=== PATIENT | male | born 1960 | race Caucasian/White ===

== ENCOUNTER 2016-04-13 14:39 | Inpatient (IN) | payer OTHER, MEDICAID ==
--- NOTE | 2016-04-13 14:58 | CPEKG ---
Heart Rate: 89 RR Interval: 674 P-R Interval: 140 QRSD Interval: 146 QT Interval: 388 QTC Interval: 473 P [place]: 0 QRS [place]: 96 T Wave [place]: -28 EKG Severity - ABNORMAL ECG - EKG Impression: SINUS RHYTHM EKG Impression: NONSPECIFIC INTRAVENTRICULAR CONDUCTION DELAY EKG Impression: LATERAL INFARCT, OLD EKG Impression: ANTERIOR INFARCT, AGE INDETERMINATE Electronically Signed By: Yarely Marcano 13-Apr-2016 22:03:24
--- NOTE | 2016-04-13 15:14 | EDPHY ---
H & P Time Seen by Provider: 04/13/16 14:59 HPI/ROS: CHIEF COMPLAINT: I have wait too much fluid HISTORY OF PRESENT ILLNESS: The patient is a 55-year-old male with a history of atrial fibrillation on Coumadin and pulmonary hypertension with right heart failure presents to the emergency department with increased fluid retention. The patient was noted to have a nodule on his lung. He is followed by Dr. Herman. Today he was undergoing up PET scan. When they laid him on the table he was unable to breathe because he was lying flat. He does have shortness of breath and brought him to the emergency department. Patient states he has been unable to lay flat for some time. He has had increasing fluid retention both his abdomen and legs. He has increased his dose of Lasix from 80 mg in the morning and 40 mg at night to 80 mg twice daily with no relief. Patient denies chest pain. He has had no cough. No fevers or chills. REVIEW OF SYSTEMS: My complete review of systems is negative except as mentioned in the HPI. Past Medical/Surgical History: Includes atrial fibrillation, cellulitis, COPD, pulmonary hypertension with right-sided heart failure, asthma, renal failure, obesity, gout, lung nodule ( questionable CA), chronic leukocytosis, BPH, deconditioning, venous stasis changes Past surgical history: Includes pacer placement, ablation Social history: The patient lives at home. He does not smoke use alcohol. He denies THC. Smoking Status: Former smoker Physical Exam: Vitals noted. 37.1, 120/54, 92, 22, 92% on room air GENERAL: No acute distress, alert. Obese HEENT: Eyes normal to inspection, normal pharynx, no signs of dehydration. NECK: No thyromegaly, no lymphadenopathy, supple. RESPIRATORY: bilateral lower rales, no rhonchi or wheezing. CVS: Regular rate and rhythm, no rubs, murmurs, or gallops. ABDOMEN: Soft, nontender, nondistended, no organomegaly. BACK: Normal to inspection, no CVA tenderness. SKIN: Normal color, no rash, warm, dry. No pallor. EXTREMITIES: Bilateral pitting pedal edema. No significant erythema. No calf tenderness. No palpable cord. NEURO/PSYCH: Alert and oriented, normal mood and affect, normal motor sensory exam. Constitutional: Initial Vital Signs Temperature (C) 37.1 C 04/13/16 14:43 Heart Rate 92 04/13/16 14:43 Respiratory Rate 22 H 04/13/16 14:43 Blood Pressure 120/54 L 04/13/16 14:43 O2 Sat (%) 92 04/13/16 14:43 O2 Delivery Mode Nasal Cannula O2 (L/minute) 5 Allergies/Adverse Reactions: No Known Allergies Allergy (Verified 12/29/15 16:16) Home Medications: Medication Instructions Recorded Fluticasone/Salmeter 250/50Mcg 1 puffs IH BID 11/16/13 [Advair 250/50 (*)] Herbals/Supplements -Info Only 1 ea PO DAILY 11/16/13 Multivitamins [Multivitamin (*)] 1 tab PO DAILY 11/16/13 Potassium Cl [Klor-Con 10 meq (RX)] 10 - 30 meq PO DAILY 11/16/13 Albuterol Sulfate [Albuterol 1 - 2 puffs IH Q4H PRN 02/03/14 Inhaler Hfa] Diltiazem HCl [Diltiazem ER] 180 mg PO DAILY #30 capsule.er 08/25/14 Metolazone [Zaroxolyn] 2.5 mg PO DAILY #30 tab 08/25/14 Allopurinol [Allopurinol 100 MG 100 mg PO DAILY 12/29/15 (*)] Furosemide [Lasix 40 MG (*)] 40 mg PO DAILY14 12/29/15 Furosemide [Lasix 40 MG (*)] 80 mg PO DAILY 12/29/15 Ipratropium/Albuterol [Combivent 1 inh IH QID PRN 12/29/15 Respimat Inhal [place](*)] Lisinopril [Zestril 10 mg (*)] 10 mg PO DAILY 12/29/15 Warfarin Sodium [Coumadin 5MG (*)] 5 mg PO TUTH 12/29/15 Warfarin Sodium [Coumadin 5MG (*)] 10 mg PO SUMOWEFRSA 12/29/15 oxyCODONE IR [Oxycodone Ir (*)] 10 - 20 mg PO Q4-6PRN PRN 12/29/15 Doxycycline Hyclate 100 mg PO BID #14 tab 01/04/16 Medical Decision Making ED Course/Re-evaluation: In the emergency department I discussed possible etiologies with the patient. An IV was placed. Patient was given Lasix 80 mg IV. Patient's O2 saturation is 92%. He does not appear to have significant respiratory distress. I did not feel he needs urgent intervention with BiPAP. The patient refused Lasix while in the emergency department. EKG shows normal sinus rhythm, normal rate, normal axis, normal intervals. This 1 mm elevation in V1-V3. Flipped T-wave in 3. Flattened T-wave in V6. I compared this with a previous EKG from August 11, 2014. At that time their were mild elevations in V1 through V3. Chest x-ray: Please refer the dictated report by the radiologist. I personally reviewed the films. The patient has a hazy left lower lobe. Cannot exclude early pneumonia. [place] [id number]. He was mildly anemic with hematocrit of 33. BNP was 1400. Troponin was negative. Because of the x-ray finding the patient had blood cultures drawn. Lactate was sent. The patient was given Levaquin 750 mg IV. I discussed the result with the patient. The hospital service was consulted. The patient was admitted for further evaluation and care. Differential Diagnosis: My differential includes but is not limited to CHF, electrolyte abnormality, sugar abnormality, ACS, acute NE, pulmonary embolus, pneumonia, COPD exacerbation - Data Points Laboratory Results: Laboratory Results 04/13/16 15:05 04/13/16 15:05 04/13/16 15:05 WBC 14.11 H 10^3/uL (3.80-9.50) RBC 4.00 L 10^6/uL (4.40-6.38) Hgb 10.9 L g/dL (13.7-17.5) Hct 33.3 L % (40.0-51.0) MCV 83.3 fL (81.5-99.8) MCH 27.3 L pg (27.9-34.1) MCHC 32.7 g/dL (32.4-36.7) RDW 15.1 % (11.5-15.2) Plt Count 294 10^3/uL (150-400) MPV 9.3 fL (8.7-11.7) Neut % (Auto) 84.2 H % (39.3-74.2) Lymph % (Auto) 7.2 L % (15.0-45.0) [place] % (Auto) 6.6 % (4.5-13.0) Eos % (Auto) 1.1 % (0.6-7.6) Baso % (Auto) 0.3 % (0.3-1.7) Nucleat RBC Rel Count 0.0 % (0.0-0.2) Absolute Neuts (auto) 11.90 H 10^3/uL (1.70-6.50) Absolute Lymphs (auto) 1.01 10^3/uL (1.00-3.00) Absolute Monos (auto) 0.93 H 10^3/uL (0.30-0.80) Absolute Eos (auto) 0.15 10^3/uL (0.03-0.40) Absolute Basos (auto) 0.04 10^3/uL (0.02-0.10) Absolute Nucleated RBC 0.00 10^3/uL (0-0.01) Immature Gran % 0.6 % (0.0-1.1) Immature Gran # 0.08 10^3/uL (0.00-0.10) PT 21.2 H SEC (12.0-15.0) INR 1.83 H (0.83-1.16) APTT 40.8 H SEC (23.0-38.0) Sodium 134 mEq/L (134-144) Potassium 3.7 mEq/L (3.5-5.2) Chloride 91 L mEq/L (97-110) Carbon Dioxide 33 H mEq/l (22-31) Anion Gap 10 mEq/L (8-16) BUN 33 H mg/dL (7-23) Creatinine 1.1 mg/dL (0.7-1.3) Estimated GFR > 60 Glucose 111 H mg/dL (70-100) Calcium 9.6 mg/dL (8.5-10.4) Total Bilirubin 0.6 mg/dL (0.1-1.4) Conjugated Bilirubin 0.2 mg/dL (0.0-0.5) Unconjugated Bilirubin 0.4 mg/dL (0.0-1.1) AST 25 IU/L (17-59) ALT 31 IU/L (21-72) Alkaline Phosphatase 58 IU/L (38-126) Troponin I < 0.012 ng/mL (0-0.034) NT-Pro-B Natriuret Pep 1410 H pg/mL (0-125) Total Protein 7.3 g/dL (6.3-8.2) Albumin 4.0 g/dL (3.5-5.0) Medications Given: Discontinued Medications Furosemide (Lasix Injection) 80 mg IVP EDNOW ONE Stop: 04/13/16 15:10 Last Admin: 04/13/16 15:32 Dose: Not Given Departure - Departure Disposition: [facility] Inpatient Acute Clinical Impression: Acute exacerbation of congestive heart failure Qualifiers: Congestive heart failure type: diastolic Qualifier Code: (I50.33) Acute on chronic diastolic (congestive) heart failure Left lower lobe pneumonia Qualifiers: Pneumonia type: due to unspecified organism Qualifier Code: (J18.1) Lobar pneumonia, unspecified organism Condition: Good Referrals: Rina Thrasher MD [Primary Care Provider] - As per Instructions
[2016-04-13] MEDS: FUROSEMIDE 40 MG/4 ML VIAL IVP ONE ×2 (15:17→15:32)
[2016-04-13 15:23] LABS: % IMMATURE GRANULYOCYTES 0.6 % (0.0-1.1); ABSOLUTE IMMATURE GRANULOCYTES 0.08 10^3/uL (0.00-0.10); ADD DIFF? NO; ADD MORPH? NO; ADD SCAN? NO; ATYPICAL LYMPHOCYTE FLAG 0 (0-99); FRAGMENT RBC FLAG 0 (0-99); HEMATOCRIT 33.3 % (40.0-51.0); HEMOGLOBIN 10.9 g/dL (13.7-17.5); LEFT SHIFT FLG 0 (0-99); LIPEMIA HEMOLYSIS FLAG 80 (0-99); MEAN CELL HEMOGLOBIN 27.3 pg (27.9-34.1); MEAN CELL HEMOGLOBIN CONCENTR. 32.7 g/dL (32.4-36.7); MEAN CELL VOLUME 83.3 fL (81.5-99.8); MEAN PLATELET VOLUME 9.3 fL (8.7-11.7); PLATELET CLUMPS FLAG 10 (0-99); PLATELET COUNT 294 10^3/uL (150-400); RED CELL DISTRIBUTION WIDTH 15.1 % (11.5-15.2)
[2016-04-13 15:26] LABS: INR 1.83 (0.83-1.16); PROTIME(PATIENT) 21.2 SEC (12.0-15.0)
[2016-04-13 15:27] LABS: APTT 40.8 SEC (23.0-38.0)
[2016-04-13 15:34] LABS: ALANINE AMINOTRANSFERASE 31 IU/L (21-72); ALKALINE PHOSPHATASE 58 IU/L (38-126); ANION GAP 10 mEq/L (8-16); ASPARTATE AMINOTRANSFERASE 25 IU/L (17-59); BILIRUBIN,TOTAL 0.6 mg/dL (0.1-1.4); BILIRUBIN-CONJUGATED 0.2 mg/dL (0.0-0.5); BILIRUBIN-UNCONJUGATED 0.4 mg/dL (0.0-1.1); CALCIUM 9.6 mg/dL (8.5-10.4); CARBON DIOXIDE 33 mEq/l (22-31); CHLORIDE 91 mEq/L (97-110); CREATININE 1.1 mg/dL (0.7-1.3); GLOMERULAR FILTRATION RATE > 60; GLUCOSE 111 mg/dL (70-100); POTASSIUM 3.7 mEq/L (3.5-5.2); SODIUM 134 mEq/L (134-144); TOTAL PROTEIN 7.3 g/dL (6.3-8.2)
--- NOTE | 2016-04-13 15:36 | DX ---
AP and lateral chest x-ray 1456 hours. History: Dyspnea. Rapid weight gain. Findings: Comparison to 2014. Single-lead pacemaker unit remains in place. Heart size remains mildly enlarged the pulmonary vascula ture is not significant engorged. There is no consolidation, effusion, or pneumothorax. There are mil d hazy increased markings at the left lung base posteriorly. Osseous structures are unchanged. Impression: 1. Stable mild cardiomegaly. 2. Hazy increased markings left lower lobe posteriorly could related to pneumonitis or developing pne umonia versus dependent edema
[2016-04-13 15:44] LABS: TROPONIN I < 0.012 ng/mL (0-0.034)
[2016-04-13] MEDS ORDERED: IPRATROPIUM/ALBUTEROL 3 ML DEYVIAL IH ONE (20:30)
[2016-04-13] MEDS ORDERED: FUROSEMIDE 100 MG/10 ML VIAL IVP ONE (20:34)
[2016-04-13] MEDS ORDERED: ONDANSETRON 4 MG/2 ML VIAL IVP PRN (20:35)
[2016-04-13] MEDS ORDERED: oxyCODONE IR 5 MG TAB PO PRN (20:35)
[2016-04-13] MEDS ORDERED: ACETAMINOPHEN 325 MG TAB PO PRN (20:35)
[2016-04-13] MEDS ORDERED: ONDANSETRON DISINTEGRATING 4 MG TAB PO PRN (20:35)
[2016-04-13] MEDS ORDERED: IPRATROPIUM/ALBUTEROL 4GM MDI IH PRN (20:39)
[2016-04-13] MEDS ORDERED: SODIUM CL NASAL 45 ML BTL EACHNARE PRN (21:11)
[2016-04-13] MEDS: oxyCODONE IR 5 MG TAB PO PRN (21:17)
[2016-04-13] MEDS: POTASSIUM CL 20 MEQ TAB PO SCH (21:17)
[2016-04-13] MEDS: FLUTICASONE/SALMETER 250/50MCG DISKUS IH SCH (21:21)
--- NOTE | 2016-04-13 21:36 | GHP ---
[f rep st] HISTORY AND PHYSICAL DATE OF ADMISSION: 04/13/2016 CHIEF COMPLAINT: Shortness of breath. HISTORY OF PRESENT ILLNESS: This is a 55-year-old male with a history of pulmonary hypertension/cor pulmonale. He also has a history of diastolic dysfunction, atrial fibrillation, and has a pacemaker. He states over the last week or 2 and especially at the last 3 days he has been having increasing s hortness of breath on exertion. He also has orthopnea. He feels like there is some phlegm in his th roat that he cannot get up. He is not really bringing up any sputum. He has not had any fevers or c hills. He said during the break he had some saltier foods than normal. He has had worseni ng lower extremity edema. He says his weight has gone up about 20 pounds. Today, he went to get a P ET scan for a pulmonary nodule that he has, and he was unable to lie flat and sent to the emergency [facility]. REVIEW OF SYSTEMS: Ten-point Review of Systems was reviewed and other than stated above is negative. PAST MEDICAL HISTORY: 1. Atrial fibrillation. 2. COPD on 4 L of oxygen at rest and higher with activity. 3. Cor pulmonale and pulmonary hypertension. 4. Asthma. 5. Chronic leukocytosis. 6. Several lung nodules, most recent one is being evaluated with PET scan. 7. Atrial fibrillation, status post ablation with pacemaker. 8. BPH. 9. Hypertension. MEDICATIONS: See medication reconciliation. SOCIAL HISTORY: Former smoker. No alcohol. FAMILY HISTORY: Reviewed and noncontributory. PHYSICAL EXAM: VITAL SIGNS: Afebrile, blood pressure is 122/82, heart rate 88, oxygen saturation 94 % on 6 L. GENERAL: The patient is well developed in no apparent distress. HEENT: Nonicteric scler ae. Extraocular movements intact. Moist mucous membranes. NECK: Supple. No thyromegaly. LUNGS: Good effort. Clear to auscultation bilaterally. CARDIOVASCULAR: Regular rate and rhythm. No murm urs, rubs, or gallops. ABDOMEN: Positive bowel sounds. Soft, nontender, and nondistended. No hepa tosplenomegaly. EXTREMITIES: No clubbing, cyanosis, or edema. SKIN: Without rash. Dry, intact. NEUROLOGIC: Alert and oriented x3. Moving all 4 extremities equally. PSYCHIATRIC: Normal mood and affect. LABORATORIES: White count is elevated at 14, hemoglobin 10, platelets are 294, INR is 1.83, lactic a deb is normal, creatinine is 1.1, BNP is 1410. IMAGING: Chest x-ray personally reviewed and interpreted shows early CHF. EKG shows normal sinus rh ythm with an intraventricular conduction delay. ASSESSMENT: This is a 55-year-old male with a history of diastolic dysfunction and cor pulmonale pre senting with fluid overload. PLAN: 1. Acute diastolic CHF exacerbation. Will give a dose of IV Lasix, today. Will continue with IV La six tomorrow along with his metolazone. 2. Acute hypoxic respiratory failure. I think this is more fluid related to congestive heart failur e rather than pneumonia. He does have leukocytosis, but this is actually close to his baseline. Akil l see how he responds with diuresis and hold off on any antibiotics. 3. Atrial fibrillation. Will continue Coumadin. 4. COPD. Will continue nebulizer treatments. 5. Pulmonary nodule. Will need to reschedule his PET scan. /[id number]/MODL
[2016-04-13] MEDS: IPRATROPIUM/ALBUTEROL 3 ML DEYVIAL IH SCH (21:45)
[2016-04-14] MEDS: oxyCODONE IR 5 MG TAB PO PRN ×7 (00:23→22:11)
[2016-04-14] MEDS ORDERED: POTASSIUM CL 10 MEQ TAB PO PRN (01:00)
[2016-04-14 05:08] LABS: % IMMATURE GRANULYOCYTES 0.4 % (0.0-1.1); ABSOLUTE IMMATURE GRANULOCYTES 0.05 10^3/uL (0.00-0.10); ADD DIFF? NO; ADD MORPH? NO; ADD SCAN? NO; ATYPICAL LYMPHOCYTE FLAG 0 (0-99); FRAGMENT RBC FLAG 0 (0-99); HEMATOCRIT 33.1 % (40.0-51.0); HEMOGLOBIN 10.7 g/dL (13.7-17.5); LEFT SHIFT FLG 0 (0-99); LIPEMIA HEMOLYSIS FLAG 80 (0-99); MEAN CELL HEMOGLOBIN 27.2 pg (27.9-34.1); MEAN CELL HEMOGLOBIN CONCENTR. 32.3 g/dL (32.4-36.7); MEAN PLATELET VOLUME 9.5 fL (8.7-11.7); PLATELET CLUMPS FLAG 0 (0-99); PLATELET COUNT 290 10^3/uL (150-400); RED BLOOD CELL COUNT 3.94 10^6/uL (4.40-6.38); RED CELL DISTRIBUTION WIDTH 15.2 % (11.5-15.2)
[2016-04-14 05:17] LABS: INR 1.84 (0.83-1.16); PROTIME(PATIENT) 21.3 SEC (12.0-15.0)
[2016-04-14 05:23] LABS: ALANINE AMINOTRANSFERASE 28 IU/L (21-72); ALBUMIN 3.8 g/dL (3.5-5.0); ALKALINE PHOSPHATASE 56 IU/L (38-126); ANION GAP 12 mEq/L (8-16); ASPARTATE AMINOTRANSFERASE 25 IU/L (17-59); BILIRUBIN,TOTAL 0.5 mg/dL (0.1-1.4); CALCIUM 9.2 mg/dL (8.5-10.4); CARBON DIOXIDE 31 mEq/l (22-31); CHLORIDE 93 mEq/L (97-110); CREATININE 1.1 mg/dL (0.7-1.3); GLOMERULAR FILTRATION RATE > 60; GLUCOSE 93 mg/dL (70-100); MAGNESIUM 2.1 mg/dL (1.6-2.3); POTASSIUM 3.6 mEq/L (3.5-5.2); SODIUM 136 mEq/L (134-144); TOTAL PROTEIN 7.2 g/dL (6.3-8.2)
[2016-04-14] MEDS: IPRATROPIUM/ALBUTEROL 3 ML DEYVIAL IH SCH ×4 (05:46→23:31)
[2016-04-14] MEDS ORDERED: FUROSEMIDE 100 MG/10 ML VIAL IVP SCH (09:00)
[2016-04-14] MEDS ORDERED: FUROSEMIDE 80 MG in D5W 50 ML IV SCH (09:00)
[2016-04-14] MEDS: LISINOPRIL 10 MG TAB PO SCH (09:34)
[2016-04-14] MEDS: METOLAZONE 2.5 MG TAB PO SCH (09:34)
[2016-04-14] MEDS: POTASSIUM CL 20 MEQ TAB PO SCH ×2 (09:34→22:13)
[2016-04-14] MEDS: DILTIAZEM CD 180 MG CAP PO SCH (09:34)
[2016-04-14] MEDS: ALLOPURINOL 100 MG TAB PO SCH (09:34)
[2016-04-14] MEDS: FLUTICASONE/SALMETER 250/50MCG DISKUS IH SCH ×2 (10:08→22:13)
[2016-04-14] MEDS: FUROSEMIDE 100 MG/10 ML VIAL IVP SCH ×2 (10:09→14:07)
[2016-04-14] MEDS: ALBUTEROL 3 ML DEYVIAL IH PRN (13:47)
--- NOTE | 2016-04-14 14:24 | GCON ---
[f rep st] CONSULTATION REASON FOR VISIT: Probable lung cancer. PRIMARY ONCOLOGIST: Dr. Herman. HISTORY OF PRESENT ILLNESS: The patient is a 55-year-old gentleman, who was first diagnosed with a c hest mass on the right. Because of underlying lung and cardiac dysfunction it was not safe to biopsy the mass, but it was PET-avid. Therefore, he underwent stereotactic radiotherapy by Dr. Rudd and had a good response. More recently, he was noticed to have another growing nodule in the right lung again, but in a separate site. Again, with his underlying medical condition, too dangerous to biops y the lesion, so he was being set up for a PET scan and if the lesion was isolated and avid, we are c onsidering another treatment with stereotactic radiotherapy. When I saw him on the , he was doing reasonably well, but had gained about 40 pounds that he attr ibuted to "prime rib." He was working with his other physicians and adjusting his diuretics to try t o get the weight off. Yesterday, he was in the PET scan machine, but could not lie flat due to dyspn ea, and he was sent to the emergency room. He was admitted to the hospital for probable underlying d iastolic CHF exacerbation. He is feeling a little bit better. Denies any fever at home, but today h as been coughing up some green sputum, but again no fever. PAST MEDICAL HISTORY: ALLERGIES: He has no known drug allergies. HOME MEDICATIONS: Include: Advair, albuterol, Atrovent, diltiazem, fluticasone, furosemide, metaxal one, multivitamin, oxycodone and warfarin. CHRONIC ILLNESSES: Include: 1. Cor pulmonale with pulmonary hypertension. 2. Diastolic congestive heart failure. 3. COPD on chronic oxygen. 4. Atrial fibrillation. 5. Asthma. 6. Presumed lung cancers per HPI. 7. BPH. 8. Hypertension. SURGICAL PROCEDURES: Include pacemaker placement after an ablation. FAMILY HISTORY: Both parents of lung cancer, and they were smokers. SOCIAL HISTORY: Former smoker. Denies alcohol. REVIEW OF SYSTEMS: 10-point review of systems performed and pertinent positives per HPI, otherwise, negative. PHYSICAL EXAMINATION: VITAL SIGNS: Temperature is 37.1, respiratory rate 22, saturating 92% on 5 L, blood pressure is 120/54, pulse is 92. Weight when he arrived was 156 kg, today his weight is down to 148.5 kg. He is afebrile. Pulse is 89, blood pressure is 106/55. GENERAL: He is an obese man i n no distress. LUNGS: Decreased bilaterally with some slight rales. CARDIOVASCULAR: Distant, but regular. He has 3+ edema. ABDOMEN: Soft. LABS: CBC shows a mild, but chronic anemia, 10.7. White count is chronically elevated at 14,000. P latelet count is normal. INR is 1.84. Chemistries on arrival: BUN and creatinine 33 and 1.1. Toda y, 29 and 1.1. His other electrolytes and LFTs are unremarkable. Chest x-ray on arrival showed cardiomegaly and hazy increased markings in the left lower lobe posteri yamilex. IMPRESSION: 1. Right upper lobe mass. 2. Previous right upper lobe mass consistent with primary lung cancer, status post stereotactic ther apy. 3. Acute diastolic congestive heart failure exacerbation. Workup of the nodule is currently on hold until his underlying cardiac issues can be brought under be tter control. Once he is discharged, we can reschedule the PET scan. Overall plan is if it is PET-a vid and localized, then he will undergo stereotactic radiotherapy. If it is not PET-avid, then we ca n continue monitoring. I have no further orders or recommendations while he is in the hospital, but will be available for any questions that may arise. /[id number]/MODL
[2016-04-14] MEDS ORDERED: POTASSIUM CL 20 MEQ/15 ML UDCUP PO PRN (14:55)
--- NOTE | 2016-04-14 15:02 | HOSPPROG ---
Hospitalist Progress Note Assessment/Plan: 55 yo M w cor pulmonale, chest mass here w edema, weight gain edema: consistent with acute on chronic r heart failure continue diuresis sputum: cxr w possible increased LLL markings (interp by me) favor atelectasis over pneumonia so will hold abx proph: anticoagulated AF: dilt.coumadin chest mass: appreciate onc visit reschedule pet dispo: inpt suspect needs another 2 days IV diuresis Subjective: tele: no events (interp by me). c/o yellow sputum Objective: Vital Signs Temp Pulse Resp BP Pulse Ox 36.9 C 88 18 106/55 L 96 04/14/16 11:36 04/14/16 13:45 04/14/16 13:45 04/14/16 11:36 04/14/16 13:45 Laboratory Results 04/14/16 04:19 04/14/16 04:19 04/13/16 04/14/16 04/15/16 05:59 05:59 05:59 Intake Total 850 120 Output Total 2500 820 Balance -1650 -700 PT 21.3 SEC (12.0-15.0) H 04/14/16 04:19 INR 1.84 (0.83-1.16) H 04/14/16 04:19 - Physical Exam Constitutional: no apparent distress, appears nourished Eyes: PERRL, anicteric sclera Ears, Nose, Mouth, Throat: moist mucous membranes, hearing normal Cardiovascular: regular rate and rhythym, no murmur, rub, or gallop, JVD, edema Respiratory: other (difficult exam given habitus. no wheeze) Gastrointestinal: normoactive bowel sounds, soft, non-tender abdomen Genitourinary: No chappell in urethra Skin: warm, normal color Musculoskeletal: No full muscle strength Neurologic: AAOx3 Psychiatric: interacting appropriately ICD10 Worksheet Patient Problems: Problems Problem Status Diagnosed Acute exacerbation of congestive heart failure Acute Left lower lobe pneumonia Acute Methicillin resistant Staphylococcus aureus infection Acute 12/29/15 Afib - Atrial fibrillation Active CHF - Diastolic heart failure Active COPD - Acute exacerbation of chronic obstructive airways disease Active History of - hypertension Active Cellulitis Acute Chronic Disease Management/Transitional Care Program Chronic
[2016-04-14] MEDS ORDERED: WARFARIN SODIUM 5 MG TAB PO SCH (16:00)
[2016-04-15] MEDS: oxyCODONE IR 5 MG TAB PO PRN ×5 (02:20→19:54)
[2016-04-15 05:05] LABS: ANION GAP 10 mEq/L (8-16); CALCIUM 8.5 mg/dL (8.5-10.4); CARBON DIOXIDE 31 mEq/l (22-31); CHLORIDE 91 mEq/L (97-110); CREATININE 1.4 mg/dL (0.7-1.3); GLOMERULAR FILTRATION RATE 53; GLUCOSE 111 mg/dL (70-100); POTASSIUM 4.1 mEq/L (3.5-5.2); SODIUM 132 mEq/L (134-144)
[2016-04-15] MEDS: IPRATROPIUM/ALBUTEROL 3 ML DEYVIAL IH SCH ×5 (05:20→20:26)
[2016-04-15] MEDS: FUROSEMIDE 100 MG/10 ML VIAL IVP SCH (09:04)
[2016-04-15] MEDS: FLUTICASONE/SALMETER 250/50MCG DISKUS IH SCH ×2 (09:04→20:26)
[2016-04-15] MEDS: POTASSIUM CL 20 MEQ TAB PO SCH ×2 (09:05→19:54)
[2016-04-15] MEDS: DILTIAZEM CD 180 MG CAP PO SCH (09:05)
[2016-04-15] MEDS: ALLOPURINOL 100 MG TAB PO SCH (09:05)
[2016-04-15] MEDS: METOLAZONE 2.5 MG TAB PO SCH (09:06)
[2016-04-15] MEDS: LISINOPRIL 10 MG TAB PO SCH (09:06)
[2016-04-15] MEDS ORDERED: POTASSIUM CL 20 MEQ TAB PO ONE (14:35)
--- NOTE | 2016-04-15 15:31 | SOAPPROG ---
SOAP Progress Note Assessment/Plan: E&M for probably lung cancer * New right lung mass: workup on hold; he is not a candidate for biopsy due to underlying heart and lung disorder. Once he is discharged for hospital will get PET to evaluate. * Previous Right lung mass: never biopsied but was PET avid and treated with SRT. Currently resolved. Subjective: Having more trouble urinating. Moore catheter has been ordered. Objective: Vital Signs Temp Pulse Resp BP Pulse Ox 36.9 C 92 16 116/71 95 04/15/16 12:26 04/15/16 12:26 04/15/16 12:26 04/15/16 12:26 04/15/16 12:26 Laboratory Results 04/14/16 04:19 04/15/16 04:28 04/14/16 04/15/16 04/16/16 05:59 05:59 05:59 Intake Total 850 3780 400 Output Total 2500 2900 440 Balance -1650 880 -40 PT 21.3 SEC (12.0-15.0) H 04/14/16 04:19 INR 1.84 (0.83-1.16) H 04/14/16 04:19 Physical Exam - Physical Exam General Appearance: no apparent distress ICD10 Worksheet Patient Problems: Problems Problem Status Diagnosed Acute exacerbation of congestive heart failure Acute Left lower lobe pneumonia Acute Methicillin resistant Staphylococcus aureus infection Acute 12/29/15 Chronic Disease Management/Transitional Care Program Chronic Afib - Atrial fibrillation Active CHF - Diastolic heart failure Active COPD - Acute exacerbation of chronic obstructive airways disease Active History of - hypertension Active Cellulitis Acute
[2016-04-15] MEDS ORDERED: WARFARIN SODIUM 5 MG TAB PO SCH (16:00)
--- NOTE | 2016-04-15 19:47 | HOSPPROG ---
Hospitalist Progress Note Assessment/Plan: 55 yo M w cor pulmonale, chest mass here w edema, weight gain edema: consistent with acute on chronic r heart failure creatinine going up back off diuresis some urinary retention? bladder scan with minimal residual sputum: cxr w possible increased LLL markings (interp by me) favor atelectasis over pneumonia so will hold abx proph: anticoagulated AF: dilt.coumadin chest mass: appreciate onc visit Subjective: feels like having urinary retention Objective: Vital Signs Temp Pulse Resp BP Pulse Ox 36.9 C 99 20 96/51 L 99 04/15/16 16:16 04/15/16 16:16 04/15/16 16:16 04/15/16 16:16 04/15/16 16:16 Laboratory Results 04/14/16 04:19 04/15/16 04:28 04/14/16 04/15/16 04/16/16 05:59 05:59 05:59 Intake Total 850 3780 1600 Output Total 2500 2900 890 Balance -1650 880 710 PT 21.3 SEC (12.0-15.0) H 04/14/16 04:19 INR 1.84 (0.83-1.16) H 04/14/16 04:19 - Physical Exam Constitutional: no apparent distress, appears nourished, not in pain Eyes: anicteric sclera, EOMI Ears, Nose, Mouth, Throat: moist mucous membranes Cardiovascular: regular rate and rhythym, edema (3+) Respiratory: no respiratory distress, no rales or rhonchi, clear to auscultation Gastrointestinal: normoactive bowel sounds, soft, non-tender abdomen, no palpable masses Neurologic: AAOx3 Psychiatric: interacting appropriately, not anxious, not encephalopathic, thought process linear ICD10 Worksheet Patient Problems: Problems Problem Status Diagnosed Acute exacerbation of congestive heart failure Acute Left lower lobe pneumonia Acute Methicillin resistant Staphylococcus aureus infection Acute 12/29/15 Chronic Disease Management/Transitional Care Program Chronic Afib - Atrial fibrillation Active CHF - Diastolic heart failure Active COPD - Acute exacerbation of chronic obstructive airways disease Active History of - hypertension Active Cellulitis Acute
[2016-04-16] MEDS: oxyCODONE IR 5 MG TAB PO PRN ×3 (00:39→11:49)
[2016-04-16] MEDS: ALBUTEROL 3 ML DEYVIAL IH PRN ×2 (00:58→07:14)
[2016-04-16 04:15] LABS: ANION GAP 10 mEq/L (8-16); CALCIUM 8.4 mg/dL (8.5-10.4); CARBON DIOXIDE 30 mEq/l (22-31); CHLORIDE 90 mEq/L (97-110); CREATININE 1.5 mg/dL (0.7-1.3); GLOMERULAR FILTRATION RATE 49; GLUCOSE 125 mg/dL (70-100); MAGNESIUM 2.3 mg/dL (1.6-2.3); POTASSIUM 4.5 mEq/L (3.5-5.2); SODIUM 130 mEq/L (134-144)
[2016-04-16] MEDS: IPRATROPIUM/ALBUTEROL 3 ML DEYVIAL IH SCH ×2 (05:32→10:23)
[2016-04-16 07:19] VITALS: RESP 18
[2016-04-16 07:40] VITALS: BP 116/55; TEMP 97.7
[2016-04-16] MEDS: FLUTICASONE/SALMETER 250/50MCG DISKUS IH SCH (09:15)
[2016-04-16] MEDS: ALLOPURINOL 100 MG TAB PO SCH (09:15)
[2016-04-16] MEDS: POTASSIUM CL 20 MEQ TAB PO SCH (09:15)
[2016-04-16] MEDS: DILTIAZEM CD 180 MG CAP PO SCH (09:15)
[2016-04-16 10:25] VITALS: PULSE 90; O2SAT 94
--- NOTE | 2016-04-16 13:12 | PDIAF ---
- Diagnosis Diagnosis: chf exacerbation Code Status: Full Code - Medication Management Discharge Medications: Medications to Continue on Transfer Fluticasone/Salmeter 250/50Mcg [Advair 250/50 (*)] 1 puffs IH BID 11/16/13 [ Last Taken 04/13/16] Herbals/Supplements -Info Only 1 ea PO DAILY 11/16/13 [Last Taken 12/29/15] Multivitamins [Multivitamin (*)] 1 tab PO DAILY 11/16/13 [Last Taken 12/29/15] Potassium Cl [Klor-Con 10 meq (RX)] 10 - 30 meq PO DAILY 11/16/13 [Last Taken 10MEQ] Albuterol Sulfate [Albuterol Inhaler Hfa] 1 - 2 puffs IH Q4H PRN 02/03/14 [Last Taken 12/29/15] Diltiazem HCl [Diltiazem ER] 180 mg PO DAILY #30 capsule.er 08/25/14 [Last Taken 04/13/16] Metolazone [Zaroxolyn] 2.5 mg PO DAILY #30 tab 08/25/14 [Last Taken 04/13/16] Allopurinol [Allopurinol 100 MG (*)] 100 mg PO DAILY 12/29/15 [Last Taken ] Furosemide [Lasix 40 MG (*)] 40 mg PO DAILY14 12/29/15 [Last Taken 12/28/15] Furosemide [Lasix 40 MG (*)] 80 mg PO DAILY 12/29/15 [Last Taken 04/13/16] Ipratropium/Albuterol [Combivent Respimat Inhal [place](*)] 1 inh IH QID PRN 12/28 [Last Taken Unknown] Lisinopril [Zestril 10 mg (*)] 10 mg PO DAILY 12/29/15 [Last Taken 04/13/16] Warfarin Sodium [Coumadin 5MG (*)] 5 mg PO SUTUTHSA 12/29/15 [Last Taken ] Warfarin Sodium [Coumadin 5MG (*)] 10 mg PO MOWEFR 12/29/15 [Last Taken 04/13/16 ] oxyCODONE IR [Oxycodone Ir (*)] 10 - 20 mg PO Q4-6PRN PRN 12/29/15 [Last Taken 12/29/15 10MG] Discharge Medications: Refer to the Discharge Home Medication list for PRN reason. - Orders Services needed: Home Care, Registered Nurse, Physical Therapy, Occupational Therapy Home Care Face to Face: I certify that this patient was under my care and that I had the required [id number] encounter meeting the encounter requirements on the discharge day. My findings support the fact that the patient is homebound as defined in CMS Chapter 7 Medicare Benefits Manual 30.1.1, The condition of the patient is such that there exists a normal inability to leave home and consequently, leaving home would require a considerable and taxing effort. Diet Recommendation: sodium restricted - Labs/Radiology BMP Date: 04/19/16 PT/INR Date: 04/19/16 - Follow Up Care Current Providers and Referrals: Rina Thrasher MD [Primary Care Provider] - follow up in 1 week
--- NOTE | 2016-04-16 15:55 | GDS ---
[f rep st] DISCHARGE SUMMARY DISCHARGE DIAGNOSES: 1. Cor pulmonale exacerbation. 2. Acute on chronic diastolic heart failure. 3. History of atrial fibrillation. 4. Chest mass, possibly cancer. 5. Chronic obstructive pulmonary disease. 6. Chronic leukocytosis. 7. BPH. 8. Hypertension. HISTORY: This is a 55-year-old male with a history of severe pulmonary hypertension, cor pulmonale. Presented with weight gain and worsening lower extremity edema as well as some increasing shortness of breath and inability to lie flat. HOSPITAL COURSE: The patient was admitted and was fluid overloaded. He was diuresed. He diuresed p retty well for the 1st few days, and then his creatinine started going up. The patient had complaine d of some urinary retention, but bladder scanning was negative. The patient states that he would fee l better at home if he is able to raise his legs which he is unable to do here. He also has a home [facility] nurse who will wrap his legs twice a week. I think that we have probably reached the limit of what aggressive diuresis will accomplish. I think it is reasonable for him to go home. DISPOSITION: Home. DISCHARGE MEDICATIONS: He can resume his home medicines. He is instructed to restart diuretics ____ metolazone tomorrow. He will get a PT/INR and a BNP by home health care in a few days to be s ent to his primary care doctor. TIME SPENT: Greater than 30 minutes was spent on discharge. /[id number]/MODL
== END 2016-04-16 15:09 | disposition home health service (06) | DRG 291 ==
LOC: F2W 18:12
PROVIDERS: ADMIT Internal Medicine; ATTEND Internal Medicine
DX: I50.33 Acute on chronic diastolic (congestive) heart failure (principal); J96.01 Acute respiratory failure with hypoxia; C34.90 Malignant neoplasm of unspecified part of unspecified bronchus or lung; I27.81 Cor pulmonale (chronic); I27.2 Other secondary pulmonary hypertension; J44.9 Chronic obstructive pulmonary disease, unspecified; R33.9 Retention of urine, unspecified; I48.91 Unspecified atrial fibrillation; E66.9 Obesity, unspecified; Z68.43 Body mass index [BMI] 50.0-59.9, adult; Z95.0 Presence of cardiac pacemaker; Z99.81 Dependence on supplemental oxygen; Z87.891 Personal history of nicotine dependence; Z79.01 Long term (current) use of anticoagulants
CPT/HCPCS: 96374; J1956

== ENCOUNTER 2016-06-02 21:45 | Inpatient (IN) | payer OTHER, MEDICAID ==
--- NOTE | 2016-06-02 21:56 | EDPHY ---
H & P HPI/ROS: HPI CHIEF COMPLAINT: Abdominal pain HISTORY OF PRESENT ILLNESS: This patient very pleasant 55-year-old male significant past medical history for AFib with pacemaker, congestive heart failure, chronic lower extremity edema, COPD on oxygen, presents emergency room by EMS for right upper quadrant epigastric abdominal pain. Patient states around 10-11 a.m. this morning he developed this dull achy pain in his mid abdomen he has had nausea but no active vomiting denies diarrhea. States he ate multiple sandwiches today initially he had an ache in she sandwich this morning and then a salami sandwich around 5:00 p.m.. This did not initially make the pain worse. He denies chest pain or shortness of breath denies recent illness or productive cough. His main complaint is a 7/10 mid abdomen right upper quadrant abdominal pain Past Medical History: CHF, COPD on oxygen obesity, chronic lower extremity edema, history of lung CA Past Surgical History: Pacemaker Social History: Denies daily use of drugs alcohol tobacco products Family History: Noncontributory ROS REVIEW OF SYSTEMS: A comprehensive 10 point review of systems is otherwise negative aside from elements mentioned in the history of present illness. Exam Constitutional Appears well nontoxic triage nursing summary reviewed, vital signs reviewed, awake/alert. Eyes normal conjunctivae and sclera, EOMI, PERRLA. HENT normal inspection, atraumatic, moist mucus membranes, no epistaxis, neck supple/ no meningismus, no raccoon eyes. Respiratory clear to auscultation bilaterally, normal breath sounds, no respiratory distress, no wheezing. Cardiovascular rate normal, regular rhythm, no murmur, no edema, distal pulses normal. Gastrointestinal soft, mid epigastric pain, mid ruq pain, no rebound, no guarding, normal bowel sounds, no distension, no pulsatile mass. Genitourinary no CVA tenderness. Musculoskeletal no midline vertebral tenderness, full range of motion, no calf swelling, no tenderness of extremities, no meningismus, good pulses, neurovascularly intact. Skin pink, warm, & dry, no rash, skin atraumatic. Neurologic awake, alert and oriented x 3, AAOx3, moves all 4 extremities equally, motor intact, sensory intact, CN II-XII intact, normal cerebellar, normal vision, normal speech. Psychiatric normal mood/affect. Heme/Lymph/Immune no lymphadenopathy. Differential diagnosis includes but is not limited to and in no particular order : Gastritis, pancreatitis, gallbladder disease, bowel obstruction Bowel obstruction, appendicitis, gallbladder disease, diverticulitis, colitis, enteritis, perforated viscus, gastritis, GERD, esophagitis, urinary tract infection, pyelonephritis, kidney stones Medical Decision Making: This patient had an IV established obtain blood work, patient had an ultrasound of the right upper quadrant, will check abdominal blood work you have EKG and troponin given right upper quadrant epigastric pain however he denies chest pain or shortness of breath. Re-evaluation: EKG interpretation by me on record in [employer] system. Impression time of EKG 2213, this is a paced rhythm ventricularly paced when compared to his old EKG on 04/13/2016 very similar in morphology. I do not appreciate acute ischemic changes on this EKG is unchanged from his previous EKG. Ultrasound of the right upper quadrant. The results of the study are shows distended gallbladder with multiple gallstones, unable to visualize CBD is patient would not tolerate further scanning, no pericholecystic fluid however tender with ultrasound. I discussed the results of this study with the radiologist Dr. Abbott. 1107: Re-examination this time this patient remains tender in his epigastric and right upper quadrant. His lipase is pending. Is noted T bili is elevated, his ultrasound does show multiple gallstones is most likely biliary colic versus symptomatic gallstones. There is no pericholecystic fluid. He does have a leukocytosis of 19,000 left shift. Concern for acute cholecystitis. I have consulted Dr. Carvalho with General surgery she has requested this patient be admitted to the hospitalist service due to multiple comorbid medical problems. This time this patient is hemodynamically stable has been given IV Invanz. IV Dilaudid for pain control IV fluids. Lipase pending at this time. Patient understands he will be admitted for biliary colic, symptomatic gallstones and most likely gallstone pancreatitis. He is not septic at this time. He is hemodynamically stable. I spoke with the hospitalist service Dr. Jacobo agrees to admit this patient. Patient be admitted to medical-surgical bed as he is hemodynamically stable in no acute distress. Source: Patient, EMS - Personal History Tetanus Vaccine Date: 2012 - Medical/Surgical History Hx Asthma: Yes Hx Chronic Respiratory Disease: Yes Hx Diabetes: No Hx Cardiac Disease: Yes Hx Renal Disease: No Hx Cirrhosis: No Hx Alcoholism: No Hx HIV/AIDS: No Hx Splenectomy or Spleen Trauma: No Other PMH: Lung CA, COPD, CHF, AFIB, Ablation, Asthma, quit smoking in Apr 2012 , ARF, obesity, gout,PM. Has pacemaker - Social History Smoking Status: Former smoker Constitutional: Initial Vital Signs Temperature (C) 36.8 C 06/02/16 22:00 Heart Rate 83 06/02/16 22:00 Respiratory Rate 18 06/02/16 22:00 Blood Pressure 105/54 L 06/02/16 22:00 O2 Sat (%) 95 06/02/16 22:00 O2 Delivery Mode Nasal Cannula O2 (L/minute) 4 Allergies/Adverse Reactions: No Known Allergies Allergy (Verified 06/02/16 21:59) Home Medications: Medication Instructions Recorded Fluticasone/Salmeter 250/50Mcg 1 puffs IH BID 11/16/13 [Advair 250/50 (*)] Herbals/Supplements -Info Only 1 ea PO DAILY 11/16/13 Multivitamins [Multivitamin (*)] 1 tab PO DAILY 11/16/13 Potassium Cl [Klor-Con 10 meq (RX)] 10 - 30 meq PO DAILY 11/16/13 Albuterol Sulfate [Albuterol 1 - 2 puffs IH Q4H PRN 02/03/14 Inhaler Hfa] Diltiazem HCl [Diltiazem ER] 180 mg PO DAILY #30 capsule.er 08/25/14 Metolazone [Zaroxolyn] 2.5 mg PO DAILY #30 tab 08/25/14 Allopurinol [Allopurinol 100 MG 100 mg PO DAILY 12/29/15 (*)] Furosemide [Lasix 40 MG (*)] 40 mg PO DAILY14 12/29/15 Furosemide [Lasix 40 MG (*)] 80 mg PO DAILY 12/29/15 Ipratropium/Albuterol [Combivent 1 inh IH QID PRN 12/29/15 Respimat Inhal [place](*)] Lisinopril [Zestril 10 mg (*)] 10 mg PO DAILY 12/29/15 Warfarin Sodium [Coumadin 5MG (*)] 5 mg PO SUTUTHSA 12/29/15 Warfarin Sodium [Coumadin 5MG (*)] 10 mg PO MOWEFR 12/29/15 oxyCODONE IR [Oxycodone Ir (*)] 10 - 20 mg PO Q4-6PRN PRN 12/29/15 Medical Decision Making - Data Points Laboratory Results: Laboratory Results 06/02/16 19:30 06/02/16 19:30 06/02/16 06/02/16 06/02/16 22:59 22:45 19:30 WBC RBC Hgb Hct MCV MCH MCHC RDW Plt Count MPV Neut % (Auto) Lymph % (Auto) [place] % (Auto) Eos % (Auto) Baso % (Auto) Nucleat RBC Rel Count Absolute Neuts (auto) Absolute Lymphs (auto) Absolute Monos (auto) Absolute Eos (auto) Absolute Basos (auto) Absolute Nucleated RBC Immature Gran % Immature Gran # PT INR APTT VBG Lactic Acid Pending Sodium 137 mEq/L mEq/L (134-144) Potassium 3.0 mEq/L L mEq/L (3.5-5.2) Chloride 85 mEq/L L mEq/L (97-110) Carbon Dioxide 36 mEq/l H mEq/l (22-31) Anion Gap 16 mEq/L mEq/L (8-16) BUN 31 mg/dL H mg/dL (7-23) Creatinine 1.0 mg/dL mg/dL (0.7-1.3) Estimated GFR > 60 Glucose 137 mg/dL H mg/dL (70-100) Calcium 10.2 mg/dL mg/dL (8.5-10.4) Total Bilirubin 1.7 mg/dL H mg/dL (0.1-1.4) Conjugated Bilirubin 1.4 mg/dL H mg/dL (0.0-0.5) Unconjugated Bilirubin 0.3 mg/dL mg/dL (0.0-1.1) AST 120 IU/L H IU/L (17-59) ALT 90 IU/L H IU/L (21-72) Alkaline Phosphatase 92 IU/L IU/L (38-126) Troponin I < 0.012 ng/mL ng/mL (0-0.034) Total Protein 9.0 g/dL H g/dL (6.3-8.2) Albumin 4.8 g/dL g/dL (3.5-5.0) Lipase Pending Urine Color YELLOW Urine Appearance CLEAR Urine pH 6.0 (5.0-7.5) Ur Specific [place] 1.009 (1.002-1.030) Urine Protein NEGATIVE (NEGATIVE) Urine Ketones NEGATIVE (NEGATIVE) Urine Blood NEGATIVE (NEGATIVE) Urine Nitrate NEGATIVE (NEGATIVE) Urine Bilirubin NEGATIVE (NEGATIVE) Urine Urobilinogen NEGATIVE EU EU (0.2-1.0) Ur Leukocyte Esterase NEGATIVE (NEGATIVE) Ur Culture Indicated? NOT INDICATED (NI) Urine Glucose NEGATIVE (NEGATIVE) 06/02/16 06/02/16 19:30 19:30 WBC 18.29 10^3/uL H 10^3/uL (3.80-9.50) RBC 5.13 10^6/uL 10^6/uL (4.40-6.38) Hgb 13.6 g/dL L g/dL (13.7-17.5) Hct 42.3 % % (40.0-51.0) MCV 82.5 fL fL (81.5-99.8) MCH 26.5 pg L pg (27.9-34.1) MCHC 32.2 g/dL L g/dL (32.4-36.7) RDW 14.6 % % (11.5-15.2) Plt Count 395 10^3/uL 10^3/uL (150-400) MPV 9.7 fL fL (8.7-11.7) Neut % (Auto) 92.8 % H % (39.3-74.2) Lymph % (Auto) 3.1 % L % (15.0-45.0) [place] % (Auto) 3.6 % L % (4.5-13.0) Eos % (Auto) 0.0 % L % (0.6-7.6) Baso % (Auto) 0.2 % L % (0.3-1.7) Nucleat RBC Rel Count 0.0 % % (0.0-0.2) Absolute Neuts (auto) 16.98 10^3/uL H 10^3/uL (1.70-6.50) Absolute Lymphs (auto) 0.57 10^3/uL L 10^3/uL (1.00-3.00) Absolute Monos (auto) 0.65 10^3/uL 10^3/uL (0.30-0.80) Absolute Eos (auto) 0.00 10^3/uL L 10^3/uL (0.03-0.40) Absolute Basos (auto) 0.03 10^3/uL 10^3/uL (0.02-0.10) Absolute Nucleated RBC 0.00 10^3/uL 10^3/uL (0-0.01) Immature Gran % 0.3 % % (0.0-1.1) Immature Gran # 0.06 10^3/uL 10^3/uL (0.00-0.10) PT 20.1 SEC H SEC (12.0-15.0) INR 1.71 H (0.83-1.16) APTT 33.7 SEC SEC (23.0-38.0) VBG Lactic Acid Sodium Potassium Chloride Carbon Dioxide Anion Gap BUN Creatinine Estimated GFR Glucose Calcium Total Bilirubin Conjugated Bilirubin Unconjugated Bilirubin AST ALT Alkaline Phosphatase Troponin I Total Protein Albumin Lipase Urine Color Urine Appearance Urine pH Ur Specific [place] Urine Protein Urine Ketones Urine Blood Urine Nitrate Urine Bilirubin Urine Urobilinogen Ur Leukocyte Esterase Ur Culture Indicated? Urine Glucose Medications Given: Discontinued Medications Hydromorphone HCl (Dilaudid) 1 mg IVP EDNOW ONE Stop: 06/02/16 22:03 Last Admin: 06/02/16 22:11 Dose: 1 mg Ondansetron HCl (Zofran) 4 mg IVP EDNOW ONE Stop: 06/02/16 22:04 Last Admin: 06/02/16 22:11 Dose: 4 mg Departure - Departure Disposition: [facility] Inpatient Acute Clinical Impression: Biliary colic, Gallstones, Gallstone pancreatitis Condition: Fair Referrals: Patient,NotPresent [Unknown] - As per Instructions
[2016-06-02] MEDS ORDERED: HYDROmorphONE/DILAUDID 1 MG/ML SYR IVP ONE ×3 (22:02→23:22)
[2016-06-02] MEDS ORDERED: ONDANSETRON 4 MG/2 ML VIAL IVP ONE (22:03)
[2016-06-02 22:16] LABS: % IMMATURE GRANULYOCYTES 0.3 % (0.0-1.1); ABSOLUTE IMMATURE GRANULOCYTES 0.06 10^3/uL (0.00-0.10); ADD DIFF? NO; ADD MORPH? NO; ADD SCAN? NO; ATYPICAL LYMPHOCYTE FLAG 0 (0-99); FRAGMENT RBC FLAG 0 (0-99); HEMATOCRIT 42.3 % (40.0-51.0); HEMOGLOBIN 13.6 g/dL (13.7-17.5); LEFT SHIFT FLG 0 (0-99); LIPEMIA HEMOLYSIS FLAG 80 (0-99); MEAN CELL HEMOGLOBIN 26.5 pg (27.9-34.1); MEAN CELL HEMOGLOBIN CONCENTR. 32.2 g/dL (32.4-36.7); MEAN CELL VOLUME 82.5 fL (81.5-99.8); MEAN PLATELET VOLUME 9.7 fL (8.7-11.7); PLATELET CLUMPS FLAG 0 (0-99); PLATELET COUNT 395 10^3/uL (150-400); RED BLOOD CELL COUNT 5.13 10^6/uL (4.40-6.38); RED CELL DISTRIBUTION WIDTH 14.6 % (11.5-15.2)
--- NOTE | 2016-06-02 22:18 | CPEKG ---
Heart Rate: 85 RR Interval: 706 QRSD Interval: 168 QT Interval: 432 QTC Interval: 514 QRS Alto: 98 T Wave [place]: -37 EKG Severity - ABNORMAL ECG - EKG Impression: A-FLUTTER/FIBRILLATION W/ COMPLETE AV BLOCK EKG Impression: NONSPECIFIC INTRAVENTRICULAR CONDUCTION DELAY EKG Impression: BORDERLINE ST DEPRESSION, INFERIOR LEADS Electronically Signed By: Bryson Amador 03-Jun-2016 06:38:41
[2016-06-02 22:25] LABS: INR 1.71 (0.83-1.16); PROTIME(PATIENT) 20.1 SEC (12.0-15.0)
[2016-06-02 22:26] LABS: APTT 33.7 SEC (23.0-38.0)
[2016-06-02 22:31] LABS: ALANINE AMINOTRANSFERASE 90 IU/L (21-72); ALBUMIN 4.8 g/dL (3.5-5.0); ALKALINE PHOSPHATASE 92 IU/L (38-126); ANION GAP 16 mEq/L (8-16); ASPARTATE AMINOTRANSFERASE 120 IU/L (17-59); BILIRUBIN,TOTAL 1.7 mg/dL (0.1-1.4); BILIRUBIN-CONJUGATED 1.4 mg/dL (0.0-0.5); BILIRUBIN-UNCONJUGATED 0.3 mg/dL (0.0-1.1); CALCIUM 10.2 mg/dL (8.5-10.4); CARBON DIOXIDE 36 mEq/l (22-31); CHLORIDE 85 mEq/L (97-110); GLOMERULAR FILTRATION RATE > 60; GLUCOSE 137 mg/dL (70-100); SODIUM 137 mEq/L (134-144)
[2016-06-02 22:41] LABS: TROPONIN I < 0.012 ng/mL (0-0.034)
[2016-06-02 22:54] LABS: COLOR YELLOW; LEUKOCYTE ESTERASE,URINE NEGATIVE (NEGATIVE); NITRITE,URINE NEGATIVE (NEGATIVE)
[2016-06-02] MEDS ORDERED: ERTAPENEM 1 GM in NS 100 ML IV ONE (23:03)
[2016-06-02] MEDS ORDERED: NS 1,000 ML IV ONE (23:12)
[2016-06-02] MEDS ORDERED: HYDROmorphONE/DILAUDID 1 MG/ML SYR ONE (23:17)
[2016-06-02] MEDS ORDERED: ONDANSETRON 4 MG/2 ML VIAL IVP PRN (23:33)
[2016-06-02] MEDS ORDERED: ALBUTEROL 3 ML DEYVIAL IH PRN (23:33)
[2016-06-02] MEDS ORDERED: ONDANSETRON DISINTEGRATING 4 MG TAB PO PRN (23:33)
[2016-06-02] MEDS ORDERED: ACETAMINOPHEN 325 MG TAB PO PRN (23:33)
[2016-06-02] MEDS ORDERED: NALOXONE HCL 0.4 MG/ML INJ IVP PRN (23:36)
[2016-06-02] MEDS ORDERED: IOPAMIDOL (ISOVUE-300) 100 ML BTL IV ONE (23:51)
[2016-06-03] MEDS ORDERED: PROTOCOL MAGNESIUM 1 DOSE IV PRN (00:01)
[2016-06-03] MEDS ORDERED: PROTOCOL POTASSIUM 1 DOSE MISC PRN (00:01)
--- NOTE | 2016-06-03 00:57 | PDGENHP ---
History and Physical - Chief Complaint abdominal pain - History of Present Illness Patient is a 55-year-old male with history of chronic respiratory failure, COPD , pulmonary hypertension with right heart failure, hypertension who presents to the ED with complaint of abdominal pain. Patient states symptoms started suddenly at around 11:00 a.m. after eating breakfast. He describes bandlike abdominal pain across his upper abdomen. Over the course of the day he then developed subjective fevers and chills, some dizziness/lightheadedness, nausea and bloating, but denies any vomiting, diarrhea. Symptoms persisted and progressed over the course of the day so he decided to come to the ED for further evaluation. He denies any chest pain, shortness of breath, cough or wheezing. On arrival to the ED patient was afebrile hemodynamically stable. Labs revealed leukocytosis, elevated bilirubins, markedly elevated lipase. Abdominal ultrasound revealed gallstones, with distended gallbladder. CT abdomen and pelvis also revealed acute pancreatitis changes. He was initiated on IV fluids and IV pain control and admitted to the hospital service for further management. History Information - Allergies/Home Medication List Allergies/Adverse Reactions: No Known Allergies Allergy (Verified 06/02/16 21:59) Home Medications: Fluticasone/Salmeter 250/50Mcg [Advair 250/50 (*)] 1 puffs IH BID 11/16/13 [ Last Taken 04/13/16] Herbals/Supplements -Info Only 1 ea PO DAILY 11/16/13 [Last Taken 12/29/15] Multivitamins [Multivitamin (*)] 1 tab PO DAILY 11/16/13 [Last Taken 12/29/15] Potassium Cl [Klor-Con 10 meq (RX)] 10 - 30 meq PO DAILY 11/16/13 [Last Taken 10MEQ] Albuterol Sulfate [Albuterol Inhaler Hfa] 1 - 2 puffs IH Q4H PRN 02/03/14 [Last Taken 12/29/15] Allopurinol [Allopurinol 100 MG (*)] 100 mg PO DAILY 12/29/15 [Last Taken ] Furosemide [Lasix 40 MG (*)] 40 mg PO DAILY14 12/29/15 [Last Taken 12/28/15] Furosemide [Lasix 40 MG (*)] 80 mg PO DAILY 12/29/15 [Last Taken 04/13/16] Ipratropium/Albuterol [Combivent Respimat Inhal [place](*)] 1 inh IH QID PRN 12/28 [Last Taken Unknown] Lisinopril [Zestril 10 mg (*)] 10 mg PO DAILY 12/29/15 [Last Taken 04/13/16] Warfarin Sodium [Coumadin 5MG (*)] 5 mg PO SUTUTHSA 12/29/15 [Last Taken ] Warfarin Sodium [Coumadin 5MG (*)] 10 mg PO MOWEFR 12/29/15 [Last Taken 04/13/16 ] oxyCODONE IR [Oxycodone Ir (*)] 10 - 20 mg PO Q4-6PRN PRN 12/29/15 [Last Taken 12/29/15 10MG] I have personally reviewed and updated: family history, medical history, social history, surgical history - Past Medical History Additional medical history: COPD. chronic respiratory failure on 4-5 L nasal cannula. pulmonary hypertension with right heart failure. atrial fibrillation with permanent pacemaker. hypertension. BPH. lung nodules x2, un-biopsied, suspicion for malignancy - Surgical History Additional surgical history: TURP. tonsillectomy. neck surgery. cardiac ablation with ppm placement - Family History Positive for: non-pertinent - Social History Smoking Status: Former smoker (quit 3 years ago, 30 pack year history) Alcohol Use: None Drug Use: None Additional social history: patient currently lives alone, ambulates with a walker. Review of Systems ROS: 10pt was reviewed & negative except for what was stated in HPI & below Physical Exam Temp Pulse Resp BP Pulse Ox 36.8 C 87 18 136/78 H 97 06/02/16 22:00 06/02/16 23:45 06/02/16 23:45 06/02/16 23:45 06/02/16 23:45 O2 (L/minute) 4 Constitutional: no apparent distress, obese, uncomfortable Eyes: PERRL, anicteric sclera, EOMI Ears, Nose, Mouth, Throat: moist mucous membranes, hearing normal, ears appear normal, no oral mucosal ulcers Cardiovascular: regular rate and rhythym, no murmur, rub, or gallop, edema ( chronic 2+ b/l pitting edema of lower extremities), No JVD Peripheral Pulses: 1+: dorsalis-pedis (R), dorsalis-pedis (L) Respiratory: no respiratory distress, no rales or rhonchi, clear to auscultation Gastrointestinal: no palpable masses, other (+BS, distended but not tense abdomen, tender to palpation diffusely), No guarding, No rebound Genitourinary: no bladder fullness, no bladder tenderness Skin: other (chronic venous stasis changes and lymphedema, b/l LE wrapped in pressure dressing) Musculoskeletal: full muscle strength, no muscle tenderness, normal joint ROM, no joint effusions Neurologic: AAOx3, sensation intact bilaterally, CN II-XII Intact, No weakness, No numbness Psychiatric: interacting appropriately, not anxious, not encephalopathic, thought process linear Lab Data & Imaging Review 06/02/16 19:30 06/02/16 19:30 WBC 18.29 10^3/uL (3.80-9.50) H 06/02/16 19:30 RBC 5.13 10^6/uL (4.40-6.38) 06/02/16 19:30 Hgb 13.6 g/dL (13.7-17.5) L 06/02/16 19:30 Hct 42.3 % (40.0-51.0) 06/02/16 19:30 MCV 82.5 fL (81.5-99.8) 06/02/16 19:30 MCH 26.5 pg (27.9-34.1) L 06/02/16 19:30 MCHC 32.2 g/dL (32.4-36.7) L 06/02/16 19:30 RDW 14.6 % (11.5-15.2) 06/02/16 19:30 Plt Count 395 10^3/uL (150-400) 06/02/16 19:30 MPV 9.7 fL (8.7-11.7) 06/02/16 19: Neut % (Auto) 92.8 % (39.3-74.2) H 06/02/16 19:30 Lymph % (Auto) 3.1 % (15.0-45.0) L 06/02/16 19: [place] % (Auto) 3.6 % (4.5-13.0) L 06/02/16 19:30 Eos % (Auto) 0.0 % (0.6-7.6) L 06/02/16 19:30 Baso % (Auto) 0.2 % (0.3-1.7) L 06/02/16 19:30 Nucleat RBC Rel Count 0.0 % (0.0-0.2) 06/02/16 19:30 Absolute Neuts (auto) 16.98 10^3/uL (1.70-6.50) H 06/02/16 19:30 Absolute Lymphs (auto) 0.57 10^3/uL (1.00-3.00) L 06/02/16 19:30 Absolute Monos (auto) 0.65 10^3/uL (0.30-0.80) 06/02/16 19:30 Absolute Eos (auto) 0.00 10^3/uL (0.03-0.40) L 06/02/16 19:30 Absolute Basos (auto) 0.03 10^3/uL (0.02-0.10) 06/02/16 19:30 Absolute Nucleated RBC 0.00 10^3/uL (0-0.01) 06/02/16 19:30 Immature Gran % 0.3 % (0.0-1.1) 06/02/16 19:30 Immature Gran # 0.06 10^3/uL (0.00-0.10) 06/02/16 19:30 PT 20.1 SEC (12.0-15.0) H 06/02/16 19:30 INR 1.71 (0.83-1.16) H 06/02/16 19:30 APTT 33.7 SEC (23.0-38.0) 06/02/16 19:30 VBG Lactic Acid 1.6 mmol/L (0.7-2.1) 06/02/16 22:59 Sodium 137 mEq/L (134-144) 06/02/16 19:30 Potassium 3.0 mEq/L (3.5-5.2) L 06/02/16 19:30 Chloride 85 mEq/L (97-110) L 06/02/16 19:30 Carbon Dioxide 36 mEq/l (22-31) H 06/02/16 19:30 Anion Gap 16 mEq/L (8-16) 06/02/16 19:30 BUN 31 mg/dL (7-23) H 06/02/16 19:30 Creatinine 1.0 mg/dL (0.7-1.3) 06/02/16 19:30 Estimated GFR > 60 06/02/16 19:30 Glucose 137 mg/dL (70-100) H 06/02/16 19:30 Calcium 10.2 mg/dL (8.5-10.4) 06/02/16 19:30 Total Bilirubin 1.7 mg/dL (0.1-1.4) H 06/02/16 19:30 Conjugated Bilirubin 1.4 mg/dL (0.0-0.5) H 06/02/16 19:30 Unconjugated Bilirubin 0.3 mg/dL (0.0-1.1) 06/02/16 19:30 AST 120 IU/L (17-59) H 06/02/16 19:30 ALT 90 IU/L (21-72) H 06/02/16 19:30 Alkaline Phosphatase 92 IU/L (38-126) 06/02/16 19:30 Troponin I < 0.012 ng/mL (0-0.034) 06/02/16 19:30 Total Protein 9.0 g/dL (6.3-8.2) H 06/02/16 19:30 Albumin 4.8 g/dL (3.5-5.0) 06/02/16 19:30 Lipase > 09784.0 IU/L (23-300) H 06/02/16 19:30 Urine Color YELLOW 06/02/16 22:45 Urine Appearance CLEAR 06/02/16 22:45 Urine pH 6.0 (5.0-7.5) 06/02/16 22:45 Ur Specific [place] 1.009 (1.002-1.030) 06/02/16 22:45 Urine Protein NEGATIVE (NEGATIVE) 06/02/16 22:45 Urine Ketones NEGATIVE (NEGATIVE) 06/02/16 22:45 Urine Blood NEGATIVE (NEGATIVE) 06/02/16 22:45 Urine Nitrate NEGATIVE (NEGATIVE) 06/02/16 22:45 Urine Bilirubin NEGATIVE (NEGATIVE) 06/02/16 22:45 Urine Urobilinogen NEGATIVE EU (0.2-1.0) 06/02/16 22:45 Ur Leukocyte Esterase NEGATIVE (NEGATIVE) 06/02/16 22:45 Ur Culture Indicated? NOT INDICATED (NI) 06/02/16 22:45 Urine Glucose NEGATIVE (NEGATIVE) 06/02/16 22:45 Visualized and Interpreted imaging results: Yes Interpretation: Abd US: several small gallstones in distended gallbladder, no evidence of acute cholecystitis. CT abd/pelvis: acute pancreatitis with peripancreatic fluid, no cyst or abscess; no bowel abnormality Visualized and Interpreted EKG results: Yes EKG additional interpertation: sinus rhythm with interventricular conduction delay Assessment & Plan Assessment: Patient is a 55-year-old male with history of morbid obesity, chronic respiratory failure with COPD, pulmonary hypertension with right heart failure, hypertension and atrial fibrillation status post ppm who presents to the ED with a complaint of 1 day of abdominal pain and distension, without any vomiting or diarrhea. ED workup reveals acute gallstone pancreatitis. Plan: # acute pancreatitis Likely secondary to gallstones visualized in GB. No stones visualized in CBD, although it is noted to be dilated on CT. Bilirubins mildly elevated. Will give cautious IVF resuscitation, pain control and maintain NPO. Pain has been difficult to control in ED, will initiate Dilaudid PATIENT REGISTRATION SUPERVISOR. General surgery has also been consulted, evaluation pending. Will also consider GI consult. -NPO - NS @ 100 cc/hr, monitoring volume and respiratory status - Dilaudid PATIENT REGISTRATION SUPERVISOR - trend CMP, bilirubins - consult GI - f/u surgery recs # leukocytosis It appears patient has a baseline leukocytosis, which is slightly up on presentation today. Likely reactive and the result of above mentioned acute pancreatitis. UA negative and patient is without respiratory complaints, no other obvious source of infection. No indication for antibiotics at this time, will cont to trend cbc. # chronic respiratory failure, COPD Patient appears to be at baseline resp status, saturating well on 5L NC. Denies any wheezing, none on exam. Will confirm continue home meds and provide nebs prn. # chronic R-sided heart failure, PHTN Patient with chronic lower extremity edema, but otherwise appears euvolemic and weight is significantly down from April admission. Patient will require IVF hydration for acute pancreatitis, so will monitor fluid status closely and initiate lasix as needed. Confirm and continue home meds. # chronic Afib s/p PPM, chronic HTN Patient currently rate controlled, with stable BP. EKG appears unchanged from priors. INR slightly subtherapeutic. Pending surgery's evaluation, will cont warfarin and monitor INR. If need for surgerical intervention, will reverse warfarin and initiate heparin drip protocol. Will confirm and continue home meds. # BPH Patient requesting urinary catheter due to difficulty using urinal in hospital bed. Will avoid this if possible. UA negative. Cont home BPH meds. # pulmonary nodule Patient was to undergo PET scan to evaluate a new pulmonary nodule discovered in 04/2016. Unclear if this was done, will need to confirm with patient's outpatient oncologist. # dispo: admit to inpatient service for likely > 2 [place] stay for acute pancreatitis, not yet tolerating PO intake #gen: NPO DVT ppx: on warfarin Full code
--- NOTE | 2016-06-03 01:38 | GCON ---
Amended report CONSULTATION NOTE Name of requesting physician: Dr. Steven Pérez DATE OF CONSULTATION: 06/03/2016 CHIEF COMPLAINT: Gallstone pancreatitis. HISTORY OF PRESENT ILLNESS: The patient is a 55-year-old man who presented to the ER with diffuse upper abdominal epigastric pain. It was located in a band. It started this morning. He reports that it was worse after eating. He had nausea, but no vomiting. An ultrasound was performed, which showed gallstones, but no pericholecystic fluid. His labs were significant for elevated white count, elevated LFTs and lipase greater than 20,000. He ultimately had a CT scan of his abdomen and pelvis, which showed small amount of peripancreatic fluid with a possible dilated common bile duct. PAST MEDICAL HISTORY: CHF, COPD, morbid obesity, lower extremity edema, history of lung cancer. PAST SURGICAL HISTORY: Pacemaker. SOCIAL HISTORY: He denies tobacco, alcohol, or illegal drug use. FAMILY HISTORY: No history of gallstone pancreatitis. REVIEW OF SYSTEMS: He is not currently short of breath. He denies fevers or chills. Otherwise per HPI. PHYSICAL EXAM: VITAL SIGNS: 36.8, 87, 136/78, 18, 97% on 4 L. GENERAL: Pleasant, morbidly obese, sitting up in gurney appears comfortable. HEENT: Normocephalic. No gross hearing deficits. Mucous membranes moist. Pupils equal and round. No scleral icterus. LUNGS: Clear to auscultation bilaterally. No increased work of breathing on nasal cannula. CARDIAC: Regular rate. He has lower extremity edema. ABDOMEN: His abdomen is tight, but it is relatively nontender. Bowel sounds are present. Results reviewed per HPI. In addition, his INR is 1.71. IMPRESSION AND PLAN: The patient is a 55-year-old man with gallstone pancreatitis. He also has multiple comorbidities including congestive heart failure, chronic obstructive pulmonary disease and is anticoagulated. His pancreatitis needs to resolve prior to cholecystectomy, and then timing needs to be appropriate in terms of his anticoagulation. I will continue to follow him. /[id number]/MODL Add acc#, 06/03/16, neda NEGRETE
[2016-06-03] MEDS: HYDROmorphONE/DILAUDID 6 MG/30 ML PCA IV PRN ×2 (02:50→18:47)
[2016-06-03] MEDS: NS 1,000 ML IV ONE ×2 (02:51→02:53)
[2016-06-03] MEDS: NS 1,000 ML IV SCH (02:54)
[2016-06-03 05:37] LABS: % IMMATURE GRANULYOCYTES 0.4 % (0.0-1.1); ABSOLUTE IMMATURE GRANULOCYTES 0.08 10^3/uL (0.00-0.10); ADD DIFF? NO; ADD MORPH? NO; ADD SCAN? NO; ATYPICAL LYMPHOCYTE FLAG 0 (0-99); FRAGMENT RBC FLAG 0 (0-99); HEMATOCRIT 34.8 % (40.0-51.0); HEMOGLOBIN 11.3 g/dL (13.7-17.5); LEFT SHIFT FLG 0 (0-99); LIPEMIA HEMOLYSIS FLAG 80 (0-99); MEAN CELL HEMOGLOBIN 27.2 pg (27.9-34.1); MEAN CELL HEMOGLOBIN CONCENTR. 32.5 g/dL (32.4-36.7); MEAN CELL VOLUME 83.9 fL (81.5-99.8); MEAN PLATELET VOLUME 9.9 fL (8.7-11.7); PLATELET CLUMPS FLAG 10 (0-99); PLATELET COUNT 300 10^3/uL (150-400); RED BLOOD CELL COUNT 4.15 10^6/uL (4.40-6.38); RED CELL DISTRIBUTION WIDTH 14.6 % (11.5-15.2)
[2016-06-03 05:59] LABS: INR 1.91 (0.83-1.16)
[2016-06-03 06:04] LABS: TROPONIN I < 0.012 ng/mL (0-0.034)
[2016-06-03 06:05] LABS: ALANINE AMINOTRANSFERASE 138 IU/L (21-72); ALBUMIN 3.7 g/dL (3.5-5.0); ALKALINE PHOSPHATASE 75 IU/L (38-126); ANION GAP 11 mEq/L (8-16); APTT 37.2 SEC (23.0-38.0); ASPARTATE AMINOTRANSFERASE 177 IU/L (17-59); CARBON DIOXIDE 33 mEq/l (22-31); CHLORIDE 94 mEq/L (97-110); CREATININE 0.9 mg/dL (0.7-1.3); GLOMERULAR FILTRATION RATE > 60; GLUCOSE 122 mg/dL (70-100); POTASSIUM 2.9 mEq/L (3.5-5.2); SODIUM 138 mEq/L (134-144); TOTAL PROTEIN 6.9 g/dL (6.3-8.2)
[2016-06-03] MEDS ORDERED: POTASSIUM CL 10 MEQ TAB PO ONE ×2 (09:04→21:15)
--- NOTE | 2016-06-03 11:12 | SOAPPROG ---
SOAP Progress Note Assessment/Plan: Assessment: 55 yo with multiple co-morbidities including CHF, COPD, morbid obesity on chronic anticoagulation admitted for gallstone pancreatitis Will check lipase tomorrow When medically optimized and INR <1.4 can take for lap quique S: Pain is much improved although on RADIOLOGY SPECIAL PROCEDURE TECH Abdomen is still distended and somewhat firm but less tender to palpation than last night Plan: 06/03/16 11:11 Objective: Vital Signs Temp Pulse Resp BP Pulse Ox 36.6 C 79 23 H 109/61 93 06/03/16 08:00 06/03/16 10:32 06/03/16 08:00 06/03/16 10:32 06/03/16 10:32 Laboratory Results 06/03/16 04:50 06/03/16 04:50 06/02/16 06/03/16 06/04/16 05:59 05:59 05:59 Intake Total 1000 Output Total 300 200 Balance 700 -200 PT 22.0 SEC (12.0-15.0) H 06/03/16 04:50 INR 1.91 (0.83-1.16) H 06/03/16 04:50 ICD10 Worksheet Patient Problems: Problems Problem Status Onset Biliary colic Acute Gallstone pancreatitis Acute Gallstones Acute Afib - Atrial fibrillation Active CHF - Diastolic heart failure Active COPD - Acute exacerbation of chronic obstructive airways disease Active History of - hypertension Active Acute exacerbation of congestive heart failure Acute Cellulitis Acute Left lower lobe pneumonia Acute Methicillin resistant Staphylococcus aureus infection Acute 12/29/15 Chronic Disease Management/Transitional Care Program Chronic
--- NOTE | 2016-06-03 14:43 | HOSPPROG ---
Hospitalist Progress Note Assessment/Plan: # acute gallstone pancreatitis Likely secondary to gallstones visualized in GB. No stones visualized in CBD, although it is noted to be dilated on CT. Bilirubins mildly elevated. Will give cautious IVF resuscitation, pain control and maintain NPO. 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 Likely reactive and the result of above mentioned acute pancreatitis. UA negative and patient is without respiratory complaints, no other obvious source of infection. No indication for antibiotics at this time, will cont to trend cbc. # chronic respiratory failure, COPD Patient appears to be at baseline resp status, saturating well on 5L NC. Denies any wheezing, none on exam. Will confirm continue home meds and provide nebs prn. # chronic R-sided heart failure, PHTN Patient with chronic lower extremity edema, but otherwise appears euvolemic and weight is significantly down from April admission. -Monitor fluid status closely. Will decrease rate to 75ml/hr -Holding home diuretics # chronic Afib s/p PPM, chronic HTN Patient currently rate controlled, with stable BP. EKG appears unchanged from priors. -will reverse INR. Likely OK to be off Heparin in the short term -Holding diuretics and home BP due to borderline low BP # BPH - Cont home BPH meds. # pulmonary nodule Patient was to undergo PET scan to evaluate a new pulmonary nodule discovered in 04/2016. Unclear if this was done, will need to confirm with patient's outpatient oncologist. # dispo: pending clinical course DVT ppx: reversing INR. Heparin Proph doses. Full code S: Abd pain is better No resp issues, at baseline Does not feel like his legs are more swollen than usual Afebrile Labs: Reviewed INR: 1.91 WBC: 19 Objective: Vital Signs Temp Pulse Resp BP Pulse Ox 36.6 C 88 20 125/72 H 94 06/03/16 12:00 06/03/16 12:00 06/03/16 12:00 06/03/16 12:00 06/03/16 12:00 Laboratory Results 06/03/16 04:50 06/03/16 04:50 06/02/16 06/03/16 06/04/16 05:59 05:59 05:59 Intake Total 1000 1062 Output Total 300 550 Balance 700 512 PT 22.0 SEC (12.0-15.0) H 06/03/16 04:50 INR 1.91 (0.83-1.16) H 06/03/16 04:50 - Physical Exam Constitutional: no apparent distress, appears nourished, not in pain Eyes: PERRL, anicteric sclera, EOMI Ears, Nose, Mouth, Throat: moist mucous membranes, hearing normal, ears appear normal, no oral mucosal ulcers Cardiovascular: regular rate and rhythym, no murmur, rub, or gallop Respiratory: no respiratory distress, rhonchi Gastrointestinal: tenderness Genitourinary: no bladder fullness, no bladder tenderness, no renal bruits Skin: no rashes or abrasions, no fluctuance, no induration Musculoskeletal: full muscle strength, no muscle tenderness, normal joint ROM Neurologic: AAOx3, sensation intact bilaterally Psychiatric: interacting appropriately, not anxious, not encephalopathic, thought process linear Lymph, Heme, Immunologic: no cervical LAD, no supraclavicular LAD ICD10 Worksheet Patient Problems: Problems Problem Status Onset Biliary colic Acute Gallstone pancreatitis Acute Gallstones Acute Afib - Atrial fibrillation Active CHF - Diastolic heart failure Active COPD - Acute exacerbation of chronic obstructive airways disease Active History of - hypertension Active Acute exacerbation of congestive heart failure Acute Cellulitis Acute Left lower lobe pneumonia Acute Methicillin resistant Staphylococcus aureus infection Acute 12/29/15 Chronic Disease Management/Transitional Care Program Chronic
[2016-06-03] MEDS ORDERED: PHYTONADIONE 2.5 MG/2.5 ML ORAL UDL PO ONE (14:44)
[2016-06-03] MEDS ORDERED: DILTIAZEM HCL 180 MG PO SCH (14:45)
[2016-06-03] MEDS: DILTIAZEM CD 180 MG CAP PO SCH (16:00)
[2016-06-03] MEDS: FLUTICASONE/SALMETER 250/50MCG DISKUS IH SCH (17:03)
[2016-06-03] MEDS ORDERED: CANN-EASE 2 GM TUBE TP PRN (17:43)
[2016-06-03 18:26] LABS: POTASSIUM 3.1 mEq/L (3.5-5.2)
[2016-06-04] MEDS: NS 1,000 ML IV SCH (01:31)
[2016-06-04] MEDS: SODIUM CL NASAL 45 ML BTL EACHNARE PRN ×2 (03:53→22:32)
[2016-06-04 05:04] LABS: % IMMATURE GRANULYOCYTES 0.3 % (0.0-1.1); ABSOLUTE IMMATURE GRANULOCYTES 0.04 10^3/uL (0.00-0.10); ADD DIFF? NO; ADD MORPH? NO; ADD SCAN? NO; ATYPICAL LYMPHOCYTE FLAG 0 (0-99); FRAGMENT RBC FLAG 0 (0-99); HEMATOCRIT 35.5 % (40.0-51.0); HEMOGLOBIN 11.3 g/dL (13.7-17.5); LEFT SHIFT FLG 0 (0-99); LIPEMIA HEMOLYSIS FLAG 80 (0-99); MEAN CELL HEMOGLOBIN 26.8 pg (27.9-34.1); MEAN CELL HEMOGLOBIN CONCENTR. 31.8 g/dL (32.4-36.7); MEAN CELL VOLUME 84.3 fL (81.5-99.8); MEAN PLATELET VOLUME 9.8 fL (8.7-11.7); PLATELET CLUMPS FLAG 0 (0-99); PLATELET COUNT 307 10^3/uL (150-400); RED BLOOD CELL COUNT 4.21 10^6/uL (4.40-6.38); RED CELL DISTRIBUTION WIDTH 14.9 % (11.5-15.2)
[2016-06-04 05:24] LABS: ALANINE AMINOTRANSFERASE 357 IU/L (21-72); ALBUMIN 3.8 g/dL (3.5-5.0); ALKALINE PHOSPHATASE 178 IU/L (38-126); ANION GAP 12 mEq/L (8-16); ASPARTATE AMINOTRANSFERASE 389 IU/L (17-59); BILIRUBIN,TOTAL 3.6 mg/dL (0.1-1.4); BILIRUBIN-CONJUGATED 2.9 mg/dL (0.0-0.5); BILIRUBIN-UNCONJUGATED 0.7 mg/dL (0.0-1.1); CARBON DIOXIDE 30 mEq/l (22-31); CHLORIDE 98 mEq/L (97-110); CREATININE 0.9 mg/dL (0.7-1.3); GLOMERULAR FILTRATION RATE > 60; GLUCOSE 93 mg/dL (70-100); MAGNESIUM 2.1 mg/dL (1.6-2.3); POTASSIUM 3.3 mEq/L (3.5-5.2); SODIUM 140 mEq/L (134-144); TOTAL PROTEIN 7.1 g/dL (6.3-8.2)
[2016-06-04 05:48] LABS: INR 1.86 (0.83-1.16); PROTIME(PATIENT) 21.5 SEC (12.0-15.0)
[2016-06-04] MEDS ORDERED: POTASSIUM CL 10 MEQ TAB PO ONE ×2 (08:03→22:30)
[2016-06-04] MEDS ORDERED: POTASSIUM CL 10 MEQ TAB ONE (08:16)
[2016-06-04] MEDS: FLUTICASONE/SALMETER 250/50MCG DISKUS IH SCH ×2 (08:28→17:23)
[2016-06-04] MEDS: DILTIAZEM CD 180 MG CAP PO SCH (08:30)
[2016-06-04] MEDS: HYDROmorphONE/DILAUDID 6 MG/30 ML PCA IV PRN (12:10)
--- NOTE | 2016-06-04 12:30 | SOAPPROG ---
SOAP Progress Note Assessment/Plan: Assessment/Plan 55 morbidly obese male with likely gallstone panc - WBC, lipase improving. Still pretty tender in epigastrum - Cont conservative management of pancreatitis, patient wants to eat and I am ok with ice chips and water - Cont to trend lipase, WBC. When lipase and pain improve will plan for lap quique, likely early next week. Discussed with patient. 06/04/16 12:28 Subjective: some abd pain, improved. Wants to eat Objective: Vital Signs Temp Pulse Resp BP Pulse Ox 36.7 C 91 16 129/80 H 95 06/04/16 07:38 06/04/16 08:30 06/04/16 10:45 06/04/16 10:45 06/04/16 10:45 Laboratory Results 06/04/16 04:25 06/04/16 04:25 06/03/16 06/04/16 06/05/16 05:59 05:59 05:59 Intake Total 1000 2041 Output Total 300 1775 Balance 700 266 PT 21.5 SEC (12.0-15.0) H 06/04/16 04:25 INR 1.86 (0.83-1.16) H 06/04/16 04:25 ICD10 Worksheet Patient Problems: Problems Problem Status Onset Biliary colic Acute Gallstone pancreatitis Acute Gallstones Acute Afib - Atrial fibrillation Active CHF - Diastolic heart failure Active COPD - Acute exacerbation of chronic obstructive airways disease Active History of - hypertension Active Acute exacerbation of congestive heart failure Acute Cellulitis Acute Left lower lobe pneumonia Acute Methicillin resistant Staphylococcus aureus infection Acute 12/29/15 Chronic Disease Management/Transitional Care Program Chronic
[2016-06-04] MEDS ORDERED: PHYTONADIONE 100 MCG TAB PO ONE (12:42)
--- NOTE | 2016-06-04 14:55 | HOSPPROG ---
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 Will decrease rate to 75ml/hr -cont Holding home diuretics # permanent Afib s/p PPM- currently rate controlled, with stable BP -received vit K - holding warfarin # HTN -Holding diuretics and home BP due to borderline low BP # BPH- Cont home BPH meds. # pulmonary nodule- needs outpatient follow up # proph - scd's as reversing warfarin for OR # NPO # dispo - after surgical intervention I have discussed the case with surgery- will allow the patient to take water- planning for OR when INR appropriately reversed Subjective: pain controlled Objective: Vital Signs Temp Pulse Resp BP Pulse Ox 36.9 C 90 15 113/56 L 95 06/04/16 13:31 06/04/16 13:31 06/04/16 13:31 06/04/16 13:31 06/04/16 13:31 Laboratory Results 06/04/16 04:25 06/04/16 04:25 06/03/16 06/04/16 06/05/16 05:59 05:59 05:59 Intake Total 1000 2041 Output Total 300 1775 Balance 700 266 PT 21.5 SEC (12.0-15.0) H 06/04/16 04:25 INR 1.86 (0.83-1.16) H 06/04/16 04:25 - Physical Exam Constitutional: obese Eyes: anicteric sclera Ears, Nose, Mouth, Throat: dry mucous membranes Cardiovascular: irregularly irregular Respiratory: no respiratory distress, reduced air movement Gastrointestinal: normoactive bowel sounds, soft, non-tender abdomen Genitourinary: no bladder fullness Skin: warm, normal color Musculoskeletal: No asymmetric calves Neurologic: AAOx3 Psychiatric: interacting appropriately, not anxious Lymph, Heme, Immunologic: no cervical LAD ICD10 Worksheet Patient Problems: Problems Problem Status Onset Biliary colic Acute Gallstone pancreatitis Acute Gallstones Acute Afib - Atrial fibrillation Active CHF - Diastolic heart failure Active COPD - Acute exacerbation of chronic obstructive airways disease Active History of - hypertension Active Acute exacerbation of congestive heart failure Acute Cellulitis Acute Left lower lobe pneumonia Acute Methicillin resistant Staphylococcus aureus infection Acute 12/29/15 Chronic Disease Management/Transitional Care Program Chronic
[2016-06-04 18:43] LABS: POTASSIUM 3.2 mEq/L (3.5-5.2)
[2016-06-04] MEDS ORDERED: IPRATROPIUM/ALBUTEROL 4GM MDI IH PRN (20:00)
[2016-06-04] MEDS: POTASSIUM CL 10 MEQ TAB PO ONE ×2 (22:27→22:29)
[2016-06-05] MEDS: HYDROmorphONE/DILAUDID 6 MG/30 ML PCA IV PRN ×2 (03:01→20:48)
[2016-06-05 05:20] LABS: HEMATOCRIT 34.1 % (40.0-51.0); HEMOGLOBIN 10.6 g/dL (13.7-17.5); MEAN CELL HEMOGLOBIN 26.9 pg (27.9-34.1); MEAN CELL HEMOGLOBIN CONCENTR. 31.1 g/dL (32.4-36.7); MEAN CELL VOLUME 86.5 fL (81.5-99.8); RED BLOOD CELL COUNT 3.94 10^6/uL (4.40-6.38); RED CELL DISTRIBUTION WIDTH 14.7 % (11.5-15.2)
[2016-06-05 05:26] LABS: INR 1.59 (0.83-1.16)
[2016-06-05 05:33] LABS: ALANINE AMINOTRANSFERASE 245 IU/L (21-72); ALBUMIN 3.4 g/dL (3.5-5.0); ALKALINE PHOSPHATASE 166 IU/L (38-126); ANION GAP 8 mEq/L (8-16); ASPARTATE AMINOTRANSFERASE 177 IU/L (17-59); BILIRUBIN,TOTAL 1.8 mg/dL (0.1-1.4); CALCIUM 8.8 mg/dL (8.5-10.4); CARBON DIOXIDE 27 mEq/l (22-31); CHLORIDE 101 mEq/L (97-110); CREATININE 0.7 mg/dL (0.7-1.3); GLOMERULAR FILTRATION RATE > 60; GLUCOSE 84 mg/dL (70-100); MAGNESIUM 2.3 mg/dL (1.6-2.3); POTASSIUM 3.6 mEq/L (3.5-5.2); SODIUM 136 mEq/L (134-144); TOTAL PROTEIN 6.5 g/dL (6.3-8.2)
[2016-06-05] MEDS ORDERED: POTASSIUM CL 10 MEQ TAB PO ONE ×2 (07:43→20:19)
[2016-06-05] MEDS: FLUTICASONE/SALMETER 250/50MCG DISKUS IH SCH ×2 (08:43→20:10)
[2016-06-05] MEDS: ALLOPURINOL 100 MG TAB PO SCH (08:46)
[2016-06-05] MEDS: DILTIAZEM CD 180 MG CAP PO SCH (08:48)
--- NOTE | 2016-06-05 09:15 | SOAPPROG ---
[facility] Progress Note Assessment/Plan: Assessment/Plan 55 morbidly obese male with likely gallstone panc - Continues to improve, minimal epigastric pain. - Lipase pending, but cilincally improving - OK for CLD, with fluid restriction. - Would benefit from lasix if clinically appropriate. - NPO at [place], if looks good tomorrow AM will plan for OR tomorrow. 06/04/16 12:28 06/05/16 09:13 Subjective: really just wants to eat Objective: Vital Signs Temp Pulse Resp BP Pulse Ox 36.9 C 78 15 117/70 95 06/05/16 08:00 06/05/16 08:48 06/05/16 08:00 06/05/16 08:48 06/05/16 08:00 Laboratory Results 06/05/16 05:08 06/05/16 05:08 06/04/16 06/05/16 06/06/16 05:59 05:59 05:59 Intake Total 2041 1500 Output Total 1775 950 Balance 266 550 PT 19.0 SEC (12.0-15.0) H 06/05/16 05:08 INR 1.59 (0.83-1.16) H 06/05/16 05:08 ICD10 Worksheet Patient Problems: Problems Problem Status Onset Biliary colic Acute Gallstone pancreatitis Acute Gallstones Acute Afib - Atrial fibrillation Active CHF - Diastolic heart failure Active COPD - Acute exacerbation of chronic obstructive airways disease Active History of - hypertension Active Acute exacerbation of congestive heart failure Acute Cellulitis Acute Left lower lobe pneumonia Acute Methicillin resistant Staphylococcus aureus infection Acute 12/29/15 Chronic Disease Management/Transitional Care Program Chronic
[2016-06-05] MEDS: FUROSEMIDE 40 MG TAB PO SCH ×2 (11:51→16:03)
[2016-06-05] MEDS ORDERED: POLYETHYLENE GLYCOL 3350 17 GM PKT PO PRN (14:42)
[2016-06-05] MEDS ORDERED: MAGNESIUM HYDROXIDE 30 ML UDCUP PO PRN (14:42)
[2016-06-05] MEDS ORDERED: LACTULOSE 20 GM/30 ML UDCUP PO PRN (14:42)
[2016-06-05] MEDS ORDERED: BISACODYL 10 MG SUPP PR PRN (14:42)
--- NOTE | 2016-06-05 15:07 | HOSPPROG ---
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 -CT Abdomen -shows pancreatitis and CBD dilitation Lipase 749-> 195 this am - advanced to clears today - NPO after MN for OR tomorrow - cont IVF while NPO - Dilaudid SENIOR ENLISTED ADVISOR - follow daily CMP - surgery planning for OR in am # leukocytosis - improving with supportive Treatment - 18->11 - continue daily CBC # chronic respiratory failure - 2/2 COPD and suspected OHS- oxygen saturations 95% on 3L - cont inhaled meds and supportive care # chronic R-sided heart failure, PHTN- Patient with chronic lower extremity edema- otherwise appears euvolemic on exam - IVF only when NPO -restart home PO lasix today # permanent Afib s/p PPM- currently rate controlled, with stable BP- INR 1.5 this am EKG (persoanlly reviewed and interpreted) Aflutter with LBBB -received vit K - holding warfarin # HTN -restarting lasix today - follow BP closely # BPH- Cont home BPH meds. # pulmonary nodule- needs outpatient follow up # proph - scd's as reversing warfarin for OR # NPO # dispo - after surgical intervention I have discussed the case with surgery- plan for OR tomorrow as lipase and INR both down from admit Subjective: pain controlled - feels more swollen today Objective: Vital Signs Temp Pulse Resp BP Pulse Ox 36.9 C 88 15 133/73 H 95 06/05/16 11:39 06/05/16 11:39 06/05/16 11:39 06/05/16 11:39 06/05/16 11:39 Laboratory Results 06/05/16 05:08 06/05/16 05:08 06/04/16 06/05/16 06/06/16 05:59 05:59 05:59 Intake Total 2041 1500 Output Total 1775 950 Balance 266 550 PT 19.0 SEC (12.0-15.0) H 06/05/16 05:08 INR 1.59 (0.83-1.16) H 06/05/16 05:08 - Physical Exam Constitutional: obese Eyes: anicteric sclera Ears, Nose, Mouth, Throat: dry mucous membranes Cardiovascular: regular rate and rhythym Respiratory: no respiratory distress Gastrointestinal: normoactive bowel sounds, soft, non-tender abdomen Genitourinary: no bladder fullness Skin: warm, normal color Musculoskeletal: No asymmetric calves Neurologic: AAOx3 Psychiatric: interacting appropriately, not anxious Lymph, Heme, Immunologic: no cervical LAD ICD10 Worksheet Patient Problems: Problems Problem Status Onset Biliary colic Acute Gallstone pancreatitis Acute Gallstones Acute Afib - Atrial fibrillation Active CHF - Diastolic heart failure Active COPD - Acute exacerbation of chronic obstructive airways disease Active History of - hypertension Active Acute exacerbation of congestive heart failure Acute Cellulitis Acute Left lower lobe pneumonia Acute Methicillin resistant Staphylococcus aureus infection Acute 12/29/15 Chronic Disease Management/Transitional Care Program Chronic
[2016-06-05] MEDS: NS 1,000 ML IV SCH (17:49)
[2016-06-05 19:30] LABS: POTASSIUM 3.6 mEq/L (3.5-5.2)
[2016-06-05] MEDS: SENNOSIDES/DOCUSATE SODIUM TAB PO SCH (20:10)
[2016-06-06 05:50] LABS: ALANINE AMINOTRANSFERASE 176 IU/L (21-72); ALBUMIN 3.2 g/dL (3.5-5.0); ALKALINE PHOSPHATASE 151 IU/L (38-126); ANION GAP 10 mEq/L (8-16); ASPARTATE AMINOTRANSFERASE 89 IU/L (17-59); BILIRUBIN,TOTAL 1.1 mg/dL (0.1-1.4); CALCIUM 8.6 mg/dL (8.5-10.4); CARBON DIOXIDE 26 mEq/l (22-31); CHLORIDE 104 mEq/L (97-110); CREATININE 0.7 mg/dL (0.7-1.3); GLOMERULAR FILTRATION RATE > 60; GLUCOSE 68 mg/dL (70-100); POTASSIUM 3.7 mEq/L (3.5-5.2); SODIUM 140 mEq/L (134-144); TOTAL PROTEIN 6.5 g/dL (6.3-8.2)
[2016-06-06] MEDS: FLUTICASONE/SALMETER 250/50MCG DISKUS IH SCH ×2 (07:58→19:55)
[2016-06-06] MEDS: NS 1,000 ML IV SCH (07:58)
[2016-06-06] MEDS ORDERED: POTASSIUM CL 10 MEQ TAB PO ONE (08:31)
[2016-06-06] MEDS: FUROSEMIDE 40 MG TAB PO SCH ×2 (09:24→17:30)
[2016-06-06] MEDS: DILTIAZEM CD 180 MG CAP PO SCH (09:24)
[2016-06-06] MEDS: SENNOSIDES/DOCUSATE SODIUM TAB PO SCH ×2 (09:24→20:32)
[2016-06-06] MEDS: ALLOPURINOL 100 MG TAB PO SCH (09:24)
[2016-06-06] MEDS: HYDROmorphONE/DILAUDID 6 MG/30 ML PCA IV PRN (11:23)
[2016-06-06] MEDS ORDERED: ceFAZolin 2 GM/DEXTROSE 100 ML IV ONE (12:53)
[2016-06-06] MEDS ORDERED: ceFAZolin 2 GM in D5W 100 ML IV ONE (13:00)
[2016-06-06] MEDS ORDERED: BUPIVACAINE/EPI 0.25% 30 ML SDV ONE (13:04)
[2016-06-06] MEDS ORDERED: SKIN ADHESIVE (DERMABOND) 1 EACH TP ONE (13:04)
[2016-06-06] MEDS ORDERED: IOPAMIDOL (ISOVUE-M 200) 20 ML VIAL IV ONE (13:09)
[2016-06-06] MEDS ORDERED: CEFAZOLIN 2 GM/DEXTROSE/100 ML BAG IV ONE (13:17)
[2016-06-06] MEDS ORDERED: fentaNYL 250 MCG/5 ML INJ ONE (13:22)
[2016-06-06] MEDS ORDERED: MIDAZOLAM 2 MG/2 ML VIAL ONE (13:23)
[2016-06-06] MEDS ORDERED: HYDROmorphONE/DILAUDID 2 MG/ML INJ ONE ×2 (13:29→16:08)
[2016-06-06] MEDS ORDERED: SUCCINYLCHOLINE CHLORIDE*ANESTHESIA ONLY*200 MG/10 ML SYR IVP ONE (14:25)
[2016-06-06] MEDS ORDERED: ROCURONIUM 50 MG/5 ML VIAL ONE (14:25)
[2016-06-06] MEDS ORDERED: DEXAMETHASONE 4 MG/ML VIAL ONE (14:25)
[2016-06-06] MEDS ORDERED: ONDANSETRON 4 MG/2 ML VIAL ONE (14:26)
[2016-06-06] MEDS ORDERED: fentaNYL 100 MCG/2 ML INJ ONE ×2 (16:08→16:41)
--- NOTE | 2016-06-06 16:15 | HOSPPROG ---
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 -CT Abdomen -shows pancreatitis and CBD dilitation Lipase 749-> 195 this am- pt ready for OR- BMP normal - NPO for OR tomorrow - cont IVF while NPO - Dilaudid LITHOGRAPHIC PLATEMAKER - follow daily CMP # leukocytosis - improving with supportive Treatment - 18->11 - recheck CBC in am # chronic respiratory failure - 2/2 COPD and suspected OHS- oxygen saturations 93% on 2L - cont inhaled meds and supportive care # chronic R-sided heart failure, PHTN- Patient with chronic lower extremity edema- otherwise appears euvolemic on exam - IVF only when NPO -restart home PO lasix today # permanent Afib s/p PPM- currently rate controlled, with stable BP- INR 1.5 EKG (personally reviewed and interpreted) Aflutter with LBBB -received vit K - holding warfarin- can restart post -op # HTN -cont lasix today - follow BP closely # BPH- Cont home BPH meds. # pulmonary nodule- needs outpatient follow up # proph - scd's as reversing warfarin for OR # NPO # dispo - after surgical intervention I have discussed the case with Dr. Garza - pt to OR today Subjective: pain controlled Objective: Vital Signs Temp Pulse Resp BP Pulse Ox 36.9 C 92 16 120/73 93 06/06/16 09:53 06/06/16 09:53 06/06/16 09:53 06/06/16 09:53 06/06/16 09:53 Laboratory Results 06/05/16 05:08 06/06/16 04:35 06/05/16 06/06/16 06/07/16 05:59 05:59 05:59 Intake Total 1500 2050.2 Output Total 950 1550 500 Balance 550 500.2 -500 PT 19.0 SEC (12.0-15.0) H 06/05/16 05:08 INR 1.59 (0.83-1.16) H 06/05/16 05:08 - Physical Exam Constitutional: obese Eyes: anicteric sclera Ears, Nose, Mouth, Throat: moist mucous membranes Cardiovascular: regular rate and rhythym Respiratory: No expiratory wheeze Gastrointestinal: normoactive bowel sounds, soft, non-tender abdomen Genitourinary: no bladder fullness Skin: warm, normal color Musculoskeletal: No asymmetric calves Neurologic: AAOx3 Psychiatric: interacting appropriately, not anxious Lymph, Heme, Immunologic: no cervical LAD ICD10 Worksheet Patient Problems: Problems Problem Status Onset Biliary colic Acute Gallstone pancreatitis Acute Gallstones Acute Afib - Atrial fibrillation Active CHF - Diastolic heart failure Active COPD - Acute exacerbation of chronic obstructive airways disease Active History of - hypertension Active Acute exacerbation of congestive heart failure Acute Cellulitis Acute Left lower lobe pneumonia Acute Methicillin resistant Staphylococcus aureus infection Acute 12/29/15 Chronic Disease Management/Transitional Care Program Chronic
--- NOTE | 2016-06-06 16:46 | POSTOPPROG ---
Post Op Note Date of Operation: 06/06/16 Surgeon: Jefry Garza Goat Farmer: MD Boogie, Kizzy GANNON Anesthesiologist: Maurice Anesthesia: GET(General Endotracheal) Pre-op Diagnosis: Gallstone pancreatitis Post-op Diagnosis: gallstone panc, acute on chronic cholecystitis Procedure: Lap quique with IOC Findings: many adhesions, friable GB wall, IOC showed no filling defect Inf/Abcess present in the surg proc area at time of surgery?: No EBL: 50-100 Specimen(s): gallbag
[2016-06-06 20:17] LABS: POTASSIUM 4.5 mEq/L (3.5-5.2)
[2016-06-06] MEDS: ALBUTEROL 60 PUFFS/8 GM MDI IH PRN (20:18)
--- NOTE | 2016-06-07 01:06 | GOP ---
DATE OF OPERATION: 06/06/2016 SURGEON: Jefry Garza MD DATA ADMINISTRATOR: MD Comfort Hyman, ELAINE ANESTHESIA: General endotracheal ANESTHESIOLOGIST: Jesika Richards DO PREOPERATIVE DIAGNOSIS: Gallstone pancreatitis. POSTOPERATIVE DIAGNOSIS: Gallstone pancreatitis with acute on chronic cholecystitis. PROCEDURE PERFORMED: Laparoscopic cholecystectomy with intraoperative cholangiogram. FINDINGS: Significant amount of inflammation in right upper quadrant. Dense inflammatory adhesions to the anterior liver edge and to the anterior abdominal wall. Gallbladder wall edematous and fria ble. IOC performed which showed brisk spillage of contrast into the duodenum without margarita filling defect. SPECIMENS: Gallbladder. ESTIMATED BLOOD LOSS: 100 cc. DESCRIPTION OF PROCEDURE: The patient was greeted in the preoperative suite. Once again, risks, be nefits, and alternatives were discussed. He was then brought back to the operative suite, placed on the OR table in a supine position. After all anesthesia machines, including SCDs, were on and func tioning, a [employer] time-out was performed ending with all in agreement. General e ndotracheal anesthesia was then induced without incident. The patient's abdomen was then widely pre pped and draped in typical sterile fashion. I used a Veress needle in the left upper quadrant initi ally to enter the patient's abdomen, was unsuccessful to insufflate. I switched to a midline just a reuben the umbilicus where I was able to use the Visiport technique and successfully entered a 12 mm t rocar into the patient's abdomen, insufflated to 15 mmHg without issue. I then subsequently placed 3 additional 5 mm ports, 1 in the subxiphoid and 2 in the right upper quadrant, all under direct vis ualization. I had a significant amount of adhesions in the right upper quadrant. These were taken down sharply. After doing this, I identified the dome of the gallbladder. I did need to drain the gallbladder i n order to facilitate retraction. I retracted it over the edge of the liver; however, given the siz e and fatty infiltration of the liver, this was difficult. I dissected the adhesions down to the in fundibulum. I identified it, identified what appeared to be a cystic artery, and clipped it doubly and divided it. Once this was done, I did identify what appeared to be a cystic duct; however, it w as quite short. In order to successfully visualize it more, I ended up taking the remainder of the gallbladder off the liver bed in a dome-down fashion. Once this was done, and completely skeletoniz ed, there was only 1 single structure connecting the gallbladder proper to the remainder of what khadijah eared to be the common bile duct. This was identified as the cystic duct. This was clamped with a Tomas catheter. I did perform a cholangiogram which showed brisk spillage of contrast through the d uct itself into the duodenum without any margarita defects. After confirmation of the cystic duct, and given its size and friability, I elected to staple it using a 45 mm blue load of the Endo-MAXINE staple r. I successfully amputated the gallbladder off the cystic duct. I removed it with an EndoCatch ba rosalba. Hemostasis was achieved in the liver bed fossa with gentle pressure, with the assistance of elec trocautery, Surgicel and Audra. Once hemostasis was achieved, I irrigated and removed all the stones which had spilled during the pr ocedure. Once again, inspected for hemostasis, which was noted to be excellent. After I felt this, I infiltrated local anesthetic into all the port sites, removed them under direct visualization. M y midline 12 mm ports were successfully closed with an 0 Vicryl in a [id number] fashion. Skin was closed with running 4-0 Monocryl over which Dermabond was placed. The patient was then extubate d in the operative suite and taken to the PACU in satisfactory condition. DRAINS: None. COUNTS: All counts were reported as correct x2. /[id number]/MODL
[2016-06-07 05:14] VITALS: PULSE 80
[2016-06-07] MEDS: FLUTICASONE/SALMETER 250/50MCG DISKUS IH SCH (06:39)
[2016-06-07 06:40] LABS: ALANINE AMINOTRANSFERASE 137 IU/L (21-72); ALBUMIN 3.1 g/dL (3.5-5.0); ALKALINE PHOSPHATASE 129 IU/L (38-126); ANION GAP 10 mEq/L (8-16); ASPARTATE AMINOTRANSFERASE 72 IU/L (17-59); BILIRUBIN,TOTAL 0.8 mg/dL (0.1-1.4); CALCIUM 8.7 mg/dL (8.5-10.4); CARBON DIOXIDE 25 mEq/l (22-31); CHLORIDE 105 mEq/L (97-110); CREATININE 0.6 mg/dL (0.7-1.3); GLOMERULAR FILTRATION RATE > 60; GLUCOSE 129 mg/dL (70-100); POTASSIUM 4.4 mEq/L (3.5-5.2); SODIUM 140 mEq/L (134-144); TOTAL PROTEIN 6.2 g/dL (6.3-8.2)
[2016-06-07 07:43] VITALS: BP 115/71; RESP 15; TEMP 98.6; O2SAT 96
[2016-06-07] MEDS: ALLOPURINOL 100 MG TAB PO SCH (08:28)
[2016-06-07] MEDS: DILTIAZEM CD 180 MG CAP PO SCH (08:28)
[2016-06-07] MEDS: SENNOSIDES/DOCUSATE SODIUM TAB PO SCH (08:29)
[2016-06-07] MEDS: FUROSEMIDE 40 MG TAB PO SCH (08:30)
[2016-06-07] MEDS ORDERED: oxyCODONE IR 5 MG TAB PO PRN ×3 (09:04→12:16)
--- NOTE | 2016-06-07 10:11 | SOAPPROG ---
SOAP Progress Note Assessment/Plan: Assessment/Plan 55yo POD#1 s/p lap quique c IOC - Doing well, pain appropriate. Incisions clean and abdominal exam appropriate - IOC showed clean flow of contrast into duodenum, no filling defects, likely no residual stones in CBD - OOB, ambulate. OK for d/c from my standpoint. F/u in 10 days for routine post- op visit. 06/04/16 12:28 06/05/16 09:13 06/07/16 10:10 Subjective: Pain appropriate, tolerating diet. Objective: Vital Signs Temp Pulse Resp BP Pulse Ox 37.0 C 80 15 115/71 96 06/07/16 07:40 06/07/16 07:40 06/07/16 07:40 06/07/16 07:40 06/07/16 07:40 Laboratory Results 06/05/16 05:08 06/07/16 05:00 06/06/16 06/07/16 06/08/16 05:59 05:59 05:59 Intake Total 2050.2 2060 Output Total 1550 1450 Balance 500.2 610 PT 19.0 SEC (12.0-15.0) H 06/05/16 05:08 INR 1.59 (0.83-1.16) H 06/05/16 05:08 ICD10 Worksheet Patient Problems: Problems Problem Status Onset Biliary colic Acute Gallstone pancreatitis Acute Gallstones Acute Afib - Atrial fibrillation Active CHF - Diastolic heart failure Active COPD - Acute exacerbation of chronic obstructive airways disease Active History of - hypertension Active Acute exacerbation of congestive heart failure Acute Cellulitis Acute Left lower lobe pneumonia Acute Methicillin resistant Staphylococcus aureus infection Acute 12/29/15 Chronic Disease Management/Transitional Care Program Chronic
[2016-06-07] MEDS: ALBUTEROL 60 PUFFS/8 GM MDI IH PRN (10:28)
--- NOTE | 2016-06-07 11:31 | PDIAF ---
- Diagnosis Diagnosis: acute biliary pancreatitis Code Status: Full Code - Medication Management Discharge Medications: Medications to Continue on Transfer Fluticasone/Salmeter 250/50Mcg [Advair 250/50 (*)] 1 puffs IH BID@ [Last Taken 06/02/16] Herbals/Supplements -Info Only 1 ea PO DAILY 11/16/13 [Last Taken 06/02/16] Multivitamins [Multivitamin (*)] 1 tab PO DAILY 11/16/13 [Last Taken 06/02/16] Potassium Cl [Klor-Con 10 meq (RX)] 10 meq PO Q4-6PRN PRN 11/16/13 [Last Taken 12/29/15 10MEQ] Albuterol Sulfate [Albuterol Inhaler Hfa] 1 - 2 puffs IH Q4H PRN 02/03/14 [Last Taken 06/02/16] Diltiazem HCl [Diltiazem ER] 180 mg PO DAILY #30 capsule.er 08/25/14 [Last Taken 06/02/16] Allopurinol [Allopurinol 100 MG (*)] 100 mg PO DAILY 12/29/15 [Last Taken ] Furosemide [Lasix 40 MG (*)] 40 mg PO DAILY14 12/29/15 [Last Taken 06/02/16] Furosemide [Lasix 40 MG (*)] 80 mg PO DAILY 12/29/15 [Last Taken 06/02/16] Ipratropium/Albuterol [Combivent Respimat Inhal [place](*)] 1 inh IH QID PRN 12/28 [Last Taken 06/02/16] Lisinopril [Zestril 10 mg (*)] 10 mg PO DAILY 12/29/15 [Last Taken 06/02/16] Warfarin Sodium [Coumadin 5MG (*)] 5 mg PO SUTUTHSA@12/29/15 [Last Taken ] Warfarin Sodium [Coumadin 5MG (*)] 10 mg PO MOWEFR@12/29/15 [Last Taken 06/01] oxyCODONE IR [Oxycodone Ir (*)] 10 - 20 mg PO Q4-6PRN PRN 12/29/15 [Last Taken 06/02/16] Metolazone [Zaroxolyn] 2.5 mg PO DAILY PRN 06/03/16 [Last Taken Unknown] Warfarin Sodium [Coumadin 5MG (*)] 7.5 mg PO PENA@16 06/03/16 [Last Taken 05/29/16 ] oxyCODONE IR [Oxycodone Ir (*)] 5 - 10 mg PO Q4HRS PRN #30 tab 06/07/16 [Last Taken Unknown] Discharge Medications: Refer to the Discharge Home Medication list for PRN reason. - Orders Services needed: Home Care, Registered Nurse Home Care Face to Face: I certify that this patient was under my care and that I had the required [id number] encounter meeting the encounter requirements on the discharge day. My findings support the fact that the patient is homebound as defined in CMS Chapter 7 Medicare Benefits Manual 30.1.1, The condition of the patient is such that there exists a normal inability to leave home and consequently, leaving home would require a considerable and taxing effort. Diet Recommendation: sodium restricted, cardiac -low fat low salt Diet Texture: Regular Texture Diet - Labs/Radiology PT/INR Date: 06/10/16 (call to your anticoag clinic) - Follow Up Care Current Providers and Referrals: Jfery Garza MD [Medical Doctor] - follow up in 10 days Patient,NotPresent [Unknown] - As per Instructions
--- NOTE | 2016-06-08 11:10 | GDS ---
DISCHARGE DIAGNOSES: 1. Acute gallstone pancreatitis. 2. Chronic respiratory failure secondary to chronic obstructive pulmonary disease and obesity hypov entilation syndrome. 3. Chronic right-sided heart failure secondary to pulmonary hypertension. 4. Permanent atrial fibrillation, status post permanent pacemaker. 5. Hypertension. 6. Benign prostatic hypertrophy. 7. Leukocytosis secondary to gallstone pancreatitis. HISTORY OF PRESENT ILLNESS: This is a 55-year-old male, who presents with complaints of abdominal p ain. For details of patient's initial presentation, please see the History and Physical dated 2016. CONSULTATIVE SERVICES: General Surgery. PROCEDURES: On 06/06/2016, patient underwent laparoscopic cholecystectomy. HOSPITAL COURSE BY ISSUE: 1. Acute gallstone pancreatitis. The patient was admitted and treated initially with n.p.o. diet, I V fluids, IV pain medications until his lipase and laboratories settled. Patient had his INR reverse d and was taken to the operating room the day prior to disposition. He had a successful cholecystect rylan, and was tolerating a regular diet on the day of disposition. He will follow with Dr. Garza in the outpatient setting. 2. Atrial fibrillation, on anticoagulation. Patient had his INR reversed with vitamin K so he could safely be taken the operating room. We have re-initiated warfarin therapy, and the assisted team will follow INRs until he can resume being followed in the outpatient setting by his normal ant icoagulation clinic. 3. Chronic hypoxic respiratory failure secondary to COPD and OHS. Patient will continue supplementa l oxygen. 4. COPD. Patient did not have an acute exacerbation, was continued on his home medications without change. MEDICATIONS AT THE TIME OF DISPOSITION: Please reference medication reconciliation printed on 06/07. FOLLOWUP: Includes to follow labs in the early part of his recovery, and then outpatien t with his normal PCP and Dr. Garza with postoperative followup. PENDING STUDIES AT THE TIME OF THIS DICTATION: None. TIME SPENT: I spent greater than 30 minutes in the planning and coordination of this discharge. /[id number]/MODL
== END 2016-06-07 13:51 | disposition home health service (06) | DRG 418 ==
LOC: EDUNIT# → F3N 06-03 02:08
PROVIDERS: ADMIT Internal Medicine; ATTEND Hospitalist
PROC: 0FT44ZZ Resection of Gallbladder, Percutaneous Endoscopic Approach (ICD-10-PCS; principal; 2016-06-06 13:33)
PROC: BF141ZZ Fluoroscopy of Gallbladder, Bile Ducts and Pancreatic Ducts using Low Osmolar Contrast (ICD-10-PCS; principal; 2016-06-06 13:33)
DX: K85.10 Biliary acute pancreatitis without necrosis or infection (principal); K80.12 Calculus of gallbladder with acute and chronic cholecystitis without obstruction; J96.11 Chronic respiratory failure with hypoxia; E66.2 Morbid (severe) obesity with alveolar hypoventilation; J44.9 Chronic obstructive pulmonary disease, unspecified; I27.2 Other secondary pulmonary hypertension; I48.91 Unspecified atrial fibrillation; R92.1 Mammographic calcification found on diagnostic imaging of breast; Z68.42 Body mass index [BMI] 45.0-49.9, adult; Z99.81 Dependence on supplemental oxygen; Z95.0 Presence of cardiac pacemaker; Z87.891 Personal history of nicotine dependence; Z79.01 Long term (current) use of anticoagulants; Z85.118 Personal history of other malignant neoplasm of bronchus and lung
CPT/HCPCS: 96374; 97161-GP; 97165-GO; G8978-GP-CH; G8979-GP-CH; G8980-GP-CH; G8987-GO-CI; G8988-GO-CI; G8989-GO-CI; J0330; J0690; J1100; J1170; J1335; J2250; J2405; J3010; Q9966; Q9967

== ENCOUNTER → 2016-07-19 | Outpatient (CLI) | payer OTHER, MEDICAID ==
[~2016-07-19] MED LIST: DEPO METHYLPREDNISOLONE 40 MG/ML SDV ONE; IOPAMIDOL (ISOVUE 370) 100 ML BTL IV ONE; LIDOCAINE 1% 30 ML SDV ONE; NA BICARBONATE 50 MEQ/50 ML VIAL ONE; ROPIVACAINE HCL 150 MG/30 ML INJ ONE
== END ==
LOC: FIMAGING 12:27
PROVIDERS: ATTEND Orthopaedic Surgery
PROC: 3E0U33Z Introduction of Anti-inflammatory into Joints, Percutaneous Approach (ICD-10-PCS; principal; 2016-07-19)
PROC: 3E0U3BZ Introduction of Anesthetic Agent into Joints, Percutaneous Approach (ICD-10-PCS; principal; 2016-07-19)
DX: M25.551 Pain in right hip (principal)
CPT/HCPCS: 20610; J1030; J2795; Q9967

== ENCOUNTER → 2016-11-15 | Outpatient (CLI) | payer OTHER, MEDICAID ==
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
== END ==
PROVIDERS: ATTEND Internal Medicine
DX: Z46.89 Encounter for fitting and adjustment of other specified devices (principal); E66.01 Morbid (severe) obesity due to excess calories; J44.9 Chronic obstructive pulmonary disease, unspecified; I50.9 Heart failure, unspecified; I48.91 Unspecified atrial fibrillation; G89.29 Other chronic pain; M17.0 Bilateral primary osteoarthritis of knee; M16.11 Unilateral primary osteoarthritis, right hip; M54.5 Low back pain; C34.90 Malignant neoplasm of unspecified part of unspecified bronchus or lung; Z68.43 Body mass index [BMI] 50.0-59.9, adult; Z95.0 Presence of cardiac pacemaker; Z99.81 Dependence on supplemental oxygen
CPT/HCPCS: 97162; G8978; G8979; G8980

== ENCOUNTER → 2017-02-09 | Outpatient (CLI) | payer OTHER, MEDICAID ==
[~2017-02-09] MED LIST changes: -LIDOCAINE 1% 30 ML SDV ONE; +LIDOCAINE 1% 300 MG/30 ML SDV ONE; -NA BICARBONATE 50 MEQ/50 ML VIAL ONE
== END ==
LOC: FIMAGING 10:21
PROVIDERS: ATTEND Physician Assistant
PROC: 3E0U33Z Introduction of Anti-inflammatory into Joints, Percutaneous Approach (ICD-10-PCS; principal; 2017-02-09)
PROC: 3E0U3BZ Introduction of Anesthetic Agent into Joints, Percutaneous Approach (ICD-10-PCS; principal; 2017-02-09)
DX: M16.11 Unilateral primary osteoarthritis, right hip (principal)
CPT/HCPCS: 20611; 73525; J1030; J2795; Q9967

== ENCOUNTER → 2017-09-11 | Outpatient (CLI) | payer OTHER, MEDICAID | LOC: FIMAGING 10:25 | PROVIDERS: ATTEND Physician Assistant | PROC: 3E0U33Z Introduction of Anti-inflammatory into Joints, Percutaneous Approach (ICD-10-PCS; principal; 2017-09-11) | PROC: 3E0U3BZ Introduction of Anesthetic Agent into Joints, Percutaneous Approach (ICD-10-PCS; principal; 2017-09-11) | DX: M16.11 Unilateral primary osteoarthritis, right hip (principal) | CPT/HCPCS: 20610; J1030; J2795; Q9967 ==

== ENCOUNTER → 2018-08-02 | Outpatient (CLI) | payer OTHER, MEDICAID | LOC: FIMAGING 10:00 | PROVIDERS: ATTEND Physician Assistant | DX: M16.11 Unilateral primary osteoarthritis, right hip (principal); F17.200 Nicotine dependence, unspecified, uncomplicated | CPT/HCPCS: J1030; J2795; Q9967 ==